=== PATIENT | female | born 1990 | race Caucasian/White ===

== ENCOUNTER 2017-12-02 13:06 | Emergency (ER) | payer OTHER, MEDICAID, SELFPAY ==
[2017-12-02 13:11] VITALS: BP 106/74; PULSE 111; RESP 18; TEMP 36.1; O2SAT 99
[2017-12-02 14:30] VITALS: BP 110/67; PULSE 73; RESP 22; O2SAT 95
--- NOTE | 2017-12-02 14:31 | ED_ITS ---
HPI - Skin/Abscess/Foreign Bdy <KIP Su - Last Filed: 12/02/17 21:15> General Chief complaint: Skin/Abscess/Foreign Body Stated complaint: ABCESS RIGHT ARM Time Seen by Provider: 12/02/17 13:34 Source: patient Mode of arrival: ambulatory Limitations: no limitations History of Present Illness HPI narrative: 27-year-old female with history of polysubstance abuse and is an everyday smoker here for complaint of abscess to her right forearm over the past 3 days. She denies any recent IV drug use however there are multiple bruises and to her arms that appear to be recent needlestick areas. She denies having any fever. She denies any drainage from the left forearm. Positive p.o. intake. She also states that she is having pain in secondary to her carpal tunnel syndrome bilaterally. She states she has not been using her wrist braces as directed and she states she does not have a left wrist brace at this time. She denies any trauma to the forearm area. No other concerns or complaints at this timeframe Related Data Home Medications Medication Instructions Recorded Confirmed alprazolam 0.5 mg PO TID PRN 12/02/17 12/02/17 dextroamphetamine-amphetamine 20 mg PO DAILY 12/02/17 12/02/17 Previous Rx's Medication Instructions Recorded clindamycin HCl 300 mg PO QID #28 cap 12/02/17 Allergies Allergy/AdvReac Type Severity Reaction Status Date / Time sulfamethoxazole Allergy Intermediate RASH Verified 12/02/17 13:13 [From BACTRIM] trimethoprim [From BACTRIM] Allergy Intermediate RASH Verified 12/02/17 13:13 hydrocodone [From VICODIN] Allergy Mild RASH Verified 12/02/17 13:13 morphine [MORPHINE] Allergy Mild ANXIETY, Verified 12/02/17 13:13 PRURITIS Review of Systems <KIP Su - Last Filed: 12/02/17 21:15> Constitutional Denies chills, Denies fever(s), Denies lethargy and Denies weakness Eyes Denies change in vision, Denies eye discharge, Denies irritation and Denies loss of vision ENT Ears, Nose, Mouth, and Throat: Denies change in voice, Denies neck pain and Denies sore throat Cardiovascular Denies chest pain, Denies irregular heart rhythm, Denies lightheadedness, Denies palpitations, Denies dyspnea, Denies dyspnea on exertion and Denies orthopnea Respiratory Denies cough, Denies dyspnea, Denies dyspnea on exertion and Denies wheezing Gastrointestinal Gastrointestinal: Denies abdominal pain, Denies change in bowel habits, Denies diarrhea, Denies nausea and Denies vomiting Genitourinary Denies hematuria, Denies flank pain, Denies urinary incontinence and Denies urinary urgency Musculoskeletal Denies neck pain Comments: bilateral wrist and hand pain secondary to carpal tunnel syndrome abscess to right proximal forearm Integumentary/Breasts Denies pruritus, Denies erythema, Denies rash and Denies wounds Neurologic Denies confusion, Denies loss of vision and Denies weakness Psychiatric Denies anxiety, Denies confusion, Denies depression, Denies homicidal ideation and Denies suicidal ideation Endocrine Denies palpitations Hematologic/Lymphatic Denies easy bruising Allergic/Immunologic Denies wheezing Exam <KIP Su - Last Filed: 12/02/17 21:15> Initial Vital Signs Initial Vital Signs: Vital Signs Temperature 97.0 F L 12/02/17 13:11 Pulse Rate 111 H 12/02/17 13:11 Respiratory Rate 18 12/02/17 13:11 Blood Pressure 106/74 12/02/17 13:11 Pulse Oximetry 99 12/02/17 13:11 Const General: cooperative and well developed Nutritional Appearance: well nourished Orientation: alert, awake, oriented x3 and not confused [facility] Mouth: oral mucosae normal and moist mucous membranes Eyes Conjunctivae: conjunctivae normal Sclera: sclerae normal Pupils: PERRL EOM: EOM intact bilaterally Resp Effort & Inspection: normal respiratory effort, able to speak in complete sentences, no respiratory distress and no use of accessory muscles Auscultation: clear to auscultation bilaterally, no rales, no rhonchi and no wheezes Cardio Rate: regular rate Rhythm: regular rhythm Heart Sounds: no click, no gallops, no murmurs and no rubs Skin General: No jaundice and No petechiae Neuro General: alert, oriented x3, gait normal and no focal motor deficits Speech: speech normal Extrem Other: upper extremities with bilateral distal sensation intact. Bilateral Upper extremities with full range of motion. Bilateral upper extremities with distal pulses intact. Positive Tinel sign to bilateral wrist <Yamileth Lozano DO - Last Filed: 12/03/17 08:17> Initial Vital Signs Initial Vital Signs: Vital Signs Temperature 97.0 F L 12/02/17 13:11 Pulse Rate 111 H 12/02/17 13:11 Respiratory Rate 18 12/02/17 13:11 Blood Pressure 106/74 12/02/17 13:11 Pulse Oximetry 99 12/02/17 13:11 Procedures <KIP Su - Last Filed: 12/02/17 21:15> Abscess I/D Site: upper extremity Side (if applicable): right Local Anesthetic: lidocaine 1% Amount of anesthesia used (mL): 2 Technique: incised with #11 blade Amount of fluid expressed (mL): 20 Irrigation: Yes Packing used?: none Course <KIP Su - Last Filed: 12/02/17 21:15> Orders Ordered: Discontinued Medications Hydromorphone HCl (Dilaudid) 0.5 mg IV NOW ONE Stop: 12/02/17 15:40 Last Admin: 12/02/17 16:02 Dose: Ibuprofen (Advil) 800 mg PO NOW ONE Stop: 12/02/17 13:53 Last Admin: 12/02/17 14:49 Dose: 800 mg Vital Signs - 8 hr 12/02/17 14:30 12/02/17 15:30 12/02/17 16:44 Pulse Rate 73 78 Respiratory Rate 22 16 16 Blood Pressure [Left Arm] 110/67 101/62 99/59 L Pulse Oximetry 95 99 99 <Yamileth Lozano DO - Last Filed: 12/03/17 08:17> Orders Ordered: Discontinued Medications Hydromorphone HCl (Dilaudid) 0.5 mg IV NOW ONE Stop: 12/02/17 15:40 Last Admin: 12/02/17 16:02 Dose: Ibuprofen (Advil) 800 mg PO NOW ONE Stop: 12/02/17 13:53 Last Admin: 12/02/17 14:49 Dose: 800 mg Vital Signs - 8 hr 12/02/17 14:30 12/02/17 15:30 12/02/17 16:44 Pulse Rate 73 78 Respiratory Rate 22 16 16 Blood Pressure [Left Arm] 110/67 101/62 99/59 L Pulse Oximetry 95 99 99 MDM - Skin/Abscess/Foreign Bdy <AGUSTIN SuP - Last Filed: 12/02/17 21:15> Lab Data Result diagrams: 12/02/17 15:30 12/02/17 15:30 Lab Results 12/02/17 12/02/17 Range/Units 15:30 15:30 WBC 13.2 H (4.5-11.0) X10^3/uL RBC 4.37 (4.0-5.2) X10^6/uL Hgb 12.3 (12.0-16.0) g/dL Hct 36.4 (36-46) % MCV 83.3 (80-100) fL MCH 28.1 (26-34) PG MCHC 33.8 (30-36) % RDW 13.1 (11.6-14.8) % Plt Count 281 (150-400) X10^3/uL Neut % (Auto) 73.1 (50-75) % Lymph % (Auto) 19.5 L (25-40) % [place] % (Auto) 6.5 (3-14) % Eos % (Auto) 0.3 L (2-4) % Baso % (Auto) 0.6 (0-2) % Neut # (Auto) 9600 H (8512-2601) /uL Sodium 144 (137-145) mmol/L Potassium 3.7 (3.4-5.1) mmol/L Chloride 107 (98-107) mmol/L Carbon Dioxide 22 (22-32) mmol/L BUN 9 (7-17) mg/dL Creatinine 0.60 (0.52-1.04) mg/dL Estimated GFR > 60.0 (>60) mL/min BUN/Creatinine Ratio 15.0 (6-22) Glucose 100 (70-100) mg/dL Calcium 9.8 (8.4-10.2) mg/dL MDM Narrative Medical decision making narrative: abscess to right forearm was incised and drained with good amount of purulent drainage removed. Patient tolerated well no complications. Wound culture was obtained and is pending. She is placed on clindamycin. she is given a left wrist splint and instructed to wear her right wrist splint along with this to help with her carpal tunnel syndrome. [id number] ibuprofen as needed for a ny discomfort. Suspect continued polysubstance abuse with suspect multiple injection sites to her forearms. Patient denies any substance abuse follow up with primary care provider next week for re-evaluation. CBC Shows mildly elevated white count otherwise is unremarkable and Chem panel was unremarkable. <Yamileth Lozano, - Last Filed: 12/03/17 08:17> Lab Data Lab Results 12/02/17 12/02/17 Range/Units 15:30 15:30 WBC 13.2 H (4.5-11.0) X10^3/uL RBC 4.37 (4.0-5.2) X10^6/uL Hgb 12.3 (12.0-16.0) g/dL Hct 36.4 (36-46) % MCV 83.3 (80-100) fL MCH 28.1 (26-34) PG MCHC 33.8 (30-36) % RDW 13.1 (11.6-14.8) % Plt Count 281 (150-400) X10^3/uL Neut % (Auto) 73.1 (50-75) % Lymph % (Auto) 19.5 L (25-40) % [place] % (Auto) 6.5 (3-14) % Eos % (Auto) 0.3 L (2-4) % Baso % (Auto) 0.6 (0-2) % Neut # (Auto) 9600 H (5851-0690) /uL Sodium 144 (137-145) mmol/L Potassium 3.7 (3.4-5.1) mmol/L Chloride 107 (98-107) mmol/L Carbon Dioxide 22 (22-32) mmol/L BUN 9 (7-17) mg/dL Creatinine 0.60 (0.52-1.04) mg/dL Estimated GFR > 60.0 (>60) mL/min BUN/Creatinine Ratio 15.0 (6-22) Glucose 100 (70-100) mg/dL Calcium 9.8 (8.4-10.2) mg/dL Discharge Plan Departure Patient Disposition: Home Clinical Impression: Abscess of forearm, right Discharge Date/Time: 12/02/17 16:58 Interventions: ED Discharge Assessment Last Done: 12/02/17 16:58 Instructions: DI for Incision and Drainage of a Skin Abscess Activity Restrictions/Additional Instructions: abscess to right forearm was incised and drained today. Your placed on an antibiotic clindamycin use as directed. Use [id number] ibuprofen as needed for any discomfort. Follow up with her primary care provider in the next few days for re-evaluation. For any worsening symptoms return to the emergency room. Use wrist splints as directed to help with carpal tunnel syndrome. For any worsening symptoms return to the emergency room. Prescriptions: New clindamycin HCl 300 mg capsule 300 mg PO QID Qty: 28 RF: 0 No Action alprazolam 0.5 mg tablet 0.5 mg PO TID PRN (Reason: Anxiety) RF: 0 dextroamphetamine-amphetamine 20 mg tablet 20 mg PO DAILY RF: 0 Referrals: [facility] [Provider Group] <Yamileth Lozano, - Last Filed: 12/03/17 08:17> Cosign ED Attending Luke Attestation: I was immediately available in the department for consultation. Documentation has been reviewed. I agree with assessment and plan.
[2017-12-02] MEDS: IBUPROFEN 400 MG TABLET 800 MG PO (14:49)
[2017-12-02 15:30] VITALS: BP 101/62; PULSE 78; RESP 16; O2SAT 99
[2017-12-02 15:58] LABS: Blood Urea Nitrogen 9 mg/dL (7-17); Calcium 9.8 mg/dL (8.4-10.2); Carbon Dioxide 22 mmol/L (22-32); Chloride 107 mmol/L (98-107); Estimated Glomerular Filt Rate > 60.0 mL/min (>60); Glucose 100 mg/dL (70-100); HEMOLYSIS 27 (0-50); Potassium 3.7 mmol/L (3.4-5.1); Sodium 144 mmol/L (137-145)
[2017-12-02 16:05] LABS: Add Manual Diff / Slide Review NO; Basophils Percent Auto 0.6 % (0-2); Eosinophils Percent Auto 0.3 % (2-4); Hematocrit 36.4 % (36-46); Hemoglobin 12.3 g/dL (12.0-16.0); Lymphocytes Percent Auto 19.5 % (25-40); Mean Corpuscular HGB Conc 33.8 % (30-36); Mean Corpuscular Hemoglobin 28.1 PG (26-34); Mean Corpuscular Volume 83.3 fL (80-100); Monocytes Percent Auto 6.5 % (3-14); Neutrophils Absolute Auto 9600 /uL (3000-5900); Neutrophils Percent Auto 73.1 % (50-75); Platelet Count 281 X10^3/uL (150-400); Red Blood Cell Count 4.37 X10^6/uL (4.0-5.2); Red Cell Distribution Width 13.1 % (11.6-14.8); White Blood Cell Count 13.2 X10^3/uL (4.5-11.0)
[2017-12-02 16:44] VITALS: BP 99/59; RESP 16; O2SAT 99
== END 2017-12-02 16:58 | disposition home or self-care (01) ==
PROVIDERS: Emergency Provider Nurse Practitioner Family
DX: L02.413 Cutaneous abscess of right upper limb (principal)
CPT/HCPCS: 10060; 29125; 29280; 80048; 85025; 87070; 87075; 87077; 87147; 87186; 87205; 99283

== ENCOUNTER 2020-01-06 10:00 | Emergency (ER) | payer OTHER, MEDICAID, SELFPAY ==
[2020-01-06 10:06] VITALS: BP 149/89; PULSE 98; RESP 20; TEMP 36.8; O2SAT 100
[2020-01-06] MEDS: OXYCODONE IR 5 MG TABLET PO (10:22)
[2020-01-06] MEDS: IBUPROFEN 400 MG TABLET 800 MG PO (10:22)
--- NOTE | 2020-01-06 10:51 | DI.US.S_ITS ---
PROCEDURE: US EXTREMITY NONVASC UPPER LT INDICATIONS: BILATERAL ABSCESS UPPER EXTREMITIES TECHNIQUE: Real-time scanning was performed of the left upper extremity in the wrist area, with image documentation. COMPARISON: None. FINDINGS: Ultrasound was performed in the area of interest. There is a complex mass with heterogeneous echotexture in the left upper extremity measuring 4.4 x 2.0 x 3.2 cm. There is mild peripherally increased vascularity. IMPRESSION: A 4.4 x 2.0 x 3.2 cm complex mass in the palpable area of concern. Differential diagnosis includes a hematoma or an abscess. Dictated by: Carlin Gould M.D. on 01/06/2020 at 11:39 Approved by: Carlin Gould M.D. on 01/06/2020 at 11:42
--- NOTE | 2020-01-06 10:51 | DI.US.S_ITS ---
PROCEDURE: US EXTREMELY NONVASC UPPER RT INDICATIONS: BILATERAL ABSCESS UPPER EXTREMITIES TECHNIQUE: Real-time scanning was performed of the right upper extremity involving the distal medial right arm, with image documentation. COMPARISON: None. FINDINGS: There is a complex mass with heterogeneous, hypoechoic echotexture measuring 5.1 x 1.5 x 3.6 cm, corresponding to the palpable abnormality. On Doppler ultrasound, there is peripherally increased vascular flow. IMPRESSION: A 5.1 x 1.5 x 3.6 cm complex mass in the distal right arm, correlating with the palpable abnormality. It is most likely an abscess or hematoma. Recommend clinical correlation and follow-up Dictated by: Carlin Gould M.D. on 01/06/2020 at 11:43 Approved by: Carlin Gould M.D. on 01/06/2020 at 11:46
[2020-01-06] MEDS: LIDO 1%/SOD BICARB 8.4% (10ML) 10 ML SYRINGE INJ (12:59)
[2020-01-06] MEDS: HYDROMORPHONE 1 MG INJ IM (13:05)
--- NOTE | 2020-01-06 13:38 | ED_ITS ---
HPI - Skin/Abscess/Foreign Bdy <KIP Garibay - Last Filed: 01/06/20 22:41> General Chief complaint: Skin/Abscess/Foreign Body Stated complaint: abscess each arm Time Seen by Provider: 01/06/20 12:09 Source: patient Mode of arrival: Ambulatory Limitations: no limitations History of Present Illness HPI narrative: This is a 29 year female, smoker, who has medical history significant for polysubstance abuse, abscess in arm, hypothyroidism, bipolar, depression presents to ED with chief complain of bilateral arm pain, swelling like abscess. Patient reports left ulnar aspect of wrist pain and swelling and right volar aspect of upper forearm pain and swelling started 3 days ago. Patient reports she has been having small lesions with pustules in buttock and elbow 2 weeks ago which have resolved. Patient denies using IV drug. She is taking methadone daily seek care at [facility] for addiction problem. Patient denies fever, chills, nausea or vomiting. Patient reports pain radiating to lower and upper arm near these new lesions. Patient reports pain as 8/10 and constant stabbing and burning sensation. Related Data Home Medications Medication Instructions Recorded Confirmed citalopram 10 mg PO QAM 01/06/20 01/06/20 levothyroxine 100 mcg PO QAM 01/06/20 01/06/20 methadone [Methadone Intensol] 148 mg PO DAILY 01/06/20 01/06/20 olanzapine 5 mg PO BEDTIME 01/06/20 01/06/20 Previous Rx's Medication Instructions Recorded clindamycin HCl 150 mg PO TID 7 Days #21 cap 01/06/20 clindamycin HCl 300 mg PO Q8H 7 Days #21 cap 01/06/20 doxycycline hyclate 100 mg PO BID 7 Days #14 cap 01/09/20 Allergies Allergy/AdvReac Type Severity Reaction Status Date / Time sulfamethoxazole Allergy Intermediate RASH Verified 01/08/20 19:01 [From BACTRIM] trimethoprim [From BACTRIM] Allergy Intermediate RASH Verified 01/08/20 19:01 hydrocodone [From VICODIN] Allergy Mild RASH Verified 01/08/20 19:01 morphine [MORPHINE] Allergy Mild ANXIETY, Verified 01/08/20 19:01 PRURITIS Review of Systems <KIP Garibay - Last Filed: 01/06/20 22:41> Review of Systems Narrative: General: Denies fever, chills, fatigue, malaise, sweats. HEENT: Denies sinus pain, ear pain, sore throat, difficulty swallowing, dizziness. Respiratory: Denies dyspnea, cough, wheezing, hemoptysis, sputum. Cardiovascular: Denies chest pain, palpitations, orthopnea, edema. Gastrointestinal: Denies nausea, vomiting, abdominal pain, diarrhea, constipation, melena. : Denies dysuria, frequency, incontinence, hematuria, urinary retention. Musculoskeletal: Denies weakness, joint pain or bony pain. Skin: See HPI Neurologic: Denies weakness, headache, numbness, change in speech, confusion, seizures, incoordination. Psychiatric: See HPI 12-point review of systems is negative except for those stated above. Patient History <Darien BermudezKIP Peacock - Last Filed: 01/06/20 22:41> Medical History (Updated 01/09/20 @ 01:34 by Smooth Davis MD) Polysubstance abuse (05/20/15) Social History Smoking Status: Current every day smoker Smoking Status: Current every day smoker alcohol intake frequency: 0-2 drinks per day Substance Use Type: former substance user Exam <Darien BermudezKIP Peacock - Last Filed: 01/06/20 22:41> Narrative Exam Narrative: GEN: Alert, oriented x 3, thin appearing, and in no acute distress. Head: Normal cephalic, atraumatic. No scalp or temporal tenderness, palpable mass or rash. EYES: Pupils are equal, round, and reactive to light and accommodation. E xtraocular muscles are intact bilaterally. There is no subconjunctival hemorrhage, exudate and sclera non-icteric. ENT: Hearing grossly intact. Nose without bleeding, purulent discharge or deviation. Mucous membrane moist, no mucosal lesion. Throat without erythema, tonsillar hypertrophy or exudate. Uvula in midline, airway patent. Neck: Trachea in midline. No JVD, non-tender without lymphadenopathy. No masses or thyroid megaly. Supple, non-tender and no meningeal signs. CARDIAC: Normal regular rate and rhythm without murmurs, gallops, or rubs. No chest wall tenderness. No peripheral edema, cyanosis or pallor. Capillary refill is less than 2 seconds. RESPIRATORY: Lungs are clear to auscultate bilaterally. No cough, wheezes, rales, or rhonchi. No stridor, respiratory distress, increase work of breathing, or accessary muscle used. ABD: Abdomen soft, nontender and non-distended. No guarding or rebound tenderness to palpate. Bowel sounds are normal in all 4 quadrants. There is no palpable masses or organomegaly. EXT: Intact radial pulses, sensation and range of motion distally to bilateral fingers. Around the nodules very tender to palpate. SKIN: Warm, dry, normal color for patient. About 5x5 cm abscess like nodule in for aspect of right forearm, 4.5 x 4 cm of abscess likely nodule on left volar aspect of wrist which with fluctuance. Srounding skin mildly erythematous and warmth without drainage. BACK: Nontender without deformity or crepitance. No flank tenderness. NEUROLOGICAL: Alert and oriented to place, time and person. Sensation and motor function intact bilaterally. No facial droops, dysphasia. PSYCHIATRIC: Good judgement and reason, without hallucinations, abnormal affect or abnormal behaviors during the examination. Patient is not suicidal. Initial Vital Signs Initial Vital Signs: Vital Signs Temperature 98.2 F 01/06/20 10:06 Pulse Rate 98 H 01/06/20 10:06 Respiratory Rate 20 01/06/20 10:06 Blood Pressure 149/89 H 01/06/20 10:06 Pulse Oximetry 100 01/06/20 10:06 <Anastasia Vieyra DO - Last Filed: 01/10/20 08:14> Initial Vital Signs Initial Vital Signs: Vital Signs Temperature 98.2 F 01/06/20 10:06 Pulse Rate 98 H 01/06/20 10:06 Respiratory Rate 20 01/06/20 10:06 Blood Pressure 149/89 H 01/06/20 10:06 Pulse Oximetry 100 01/06/20 10:06 Procedures <KIP Garibay - Last Filed: 01/06/20 22:41> Abscess I/D I&D #1: Site: other (Left Wrist-ulna aspect) Side (if applicable): left Local Anesthetic: lidocaine 1% and with epi Amount of anesthesia used (mL): 3 Technique: needle aspiration and incised with #11 blade Amount of fluid expressed (mL): 8 Irrigation: Yes Packing used?: none I&D #2: Site: upper extremity Side (if applicable): right Local Anesthetic: lidocaine 1% and with bicarb Amount of anesthesia used (mL): 3 Technique: needle aspiration and incised with #11 blade Amount of fluid expressed (mL): 10 Irrigation: Yes Packing used?: none Scores <[facility]pperson[facility] - Last Filed: 01/06/20 22:41> GCS Vane coma scale eye opening: Spontaneous [place] coma scale verbal response: Orientated [place] coma scale motor response: Obey commands Vane coma scale total score: 15 qSOFA Altered Mental Status (GCS <15): No Respiratory rate greater than/equal to 22: No Systolic blood pressure less than or equal to 100: No qSOFA Total: 0 0-1 Not High Risk 1-3 High risk Course <[facility] - Last Filed: 01/06/20 22:41> Orders Ordered: Discontinued Medications Clindamycin HCl (Cleocin) 450 mg PO NOW ONE Stop: 01/06/20 13:41 Last Admin: 01/06/20 13:56 Dose: 450 mg Documented by: MAYKEL Hydromorphone HCl (Dilaudid) 1 mg IM NOW ONE Stop: 01/06/20 13:01 Last Admin: 01/06/20 13:05 Dose: 1 mg Documented by: CURRY Ibuprofen (Advil) 800 mg PO NOW ONE Stop: 01/06/20 10:18 Last Admin: 01/06/20 10:22 Dose: 800 mg Documented by: DIPESH Lidocaine/Sodium Bicarbonate (Buffered Lidocaine 10 Ml Syr) 10 ml INJ NOW ONE Stop: 01/06/20 12:40 Last Admin: 01/06/20 12:59 Dose: 10 ml Documented by: CURRY Oxycodone HCl (Percolone) 5 mg PO NOW ONE Stop: 01/06/20 10:18 Last Admin: 01/06/20 10:22 Dose: 5 mg Documented by: DIPESH Vital Signs Vital signs: Vital Signs - 8 hr 01/06/20 14:02 Pulse Rate 71 Respiratory Rate 16 Blood Pressure 100/65 Pulse Oximetry 100 <Anastasia Vieyra DO - Last Filed: 01/10/20 08:14> Orders Ordered: Discontinued Medications Clindamycin HCl (Cleocin) 450 mg PO NOW ONE Stop: 01/06/20 13:41 Last Admin: 01/06/20 13:56 Dose: 450 mg Documented by: MAYKEL Hydromorphone HCl (Dilaudid) 1 mg IM NOW ONE Stop: 01/06/20 13:01 Last Admin: 01/06/20 13:05 Dose: 1 mg Documented by: CURRY Ibuprofen (Advil) 800 mg PO NOW ONE Stop: 01/06/20 10:18 Last Admin: 01/06/20 10:22 Dose: 800 mg Documented by: DIPESH Lidocaine/Sodium Bicarbonate (Buffered Lidocaine 10 Ml Syr) 10 ml INJ NOW ONE Stop: 01/06/20 12:40 Last Admin: 01/06/20 12:59 Dose: 10 ml Documented by: CURRY Oxycodone HCl (Percolone) 5 mg PO NOW ONE Stop: 01/06/20 10:18 Last Admin: 01/06/20 10:22 Dose: 5 mg Documented by: DIPESH Vital Signs Vital signs: Vital Signs - 8 hr 01/06/20 14:02 Pulse Rate 71 Respiratory Rate 16 Blood Pressure 100/65 Pulse Oximetry 100 MDM - Skin/Abscess/Foreign Bdy <Darien AidanKIP Epperson - Last Filed: 01/06/20 22:41> Differential Diagnosis Differential diagnosis: Likely abscess of skin or subcutaneous tissue and cellulitis Medical Records Attestation: I reviewed the patient's medical records. Imaging Data US-EXT RT: Radiologist's Impression: [place] [address] Ultrasound Report Signed Patient: Heidi Anne [facility]#: [id number] : 1990Acct:[id number] Age/Sex: FDate of Service: 01/06/20 Loc: ED Accession Number: [id number] Procedure: US extremity nonvasc upper rt Ordering Provider: Anastasia Vieyra D.O. PROCEDURE: US EXTREMELY NONVASC UPPER RT INDICATIONS: BILATERAL ABSCESS UPPER EXTREMITIES TECHNIQUE: Real-time scanning was performed of the right upper extremity involving the distal medial right arm, with image documentation. COMPARISON: None. FINDINGS: There is a complex mass with heterogeneous, hypoechoic echotexture measuring 5.1 x 1.5 x 3.6 cm, corresponding to the palpable abnormality. On Doppler ultrasound, there is peripherally increased vascular flow. IMPRESSION: A 5.1 x 1.5 x 3.6 cm complex mass in the distal right arm, correlating with the palpable abnormality. It is most likely an abscess or hematoma. Recommend clinical correlation and follow-up Dictated by: Carlin Gould M.D. on 01/06/2020 at 11:43 Approved by: Carlin Gould M.D. on 01/06/2020 at 11:46 US-EXT LT: Radiologist's Impression: [place] [address] Ultrasound Report Signed Patient: Heidi Anne MMR#: [id number] : 1990Acct:[id number] Age/Sex: te of Service: 01/06/20 Loc: ED Accession Number: [id number] Procedure: US extremity nonvasc upper lt Ordering Provider: Anastasia Vieyra D.O. PROCEDURE: US EXTREMITY NONVASC UPPER LT INDICATIONS: BILATERAL ABSCESS UPPER EXTREMITIES TECHNIQUE: Real-time scanning was performed of the left upper extremity in the wrist area, with image documentation. COMPARISON: None. FINDINGS: Ultrasound was performed in the area of interest. There is a complex mass with heterogeneous echotexture in the left upper extremity measuring 4.4 x 2.0 x 3.2 cm. There is mild peripherally increased vascularity. IMPRESSION: A 4.4 x 2.0 x 3.2 cm complex mass in the palpable area of concern. Differential diagnosis includes a hematoma or an abscess. Dictated by: Carlin Gould M.D. on 01/06/2020 at 11:39 Approved by: Carlin Gould M.D. on 01/06/2020 at 11:42 [facility] Narrative Medical decision making narrative: This is a 29-year-old female who presents to ED with chief complain of abscess on left wrist abscess measuring 4.4 x 2.0 x 3 .2 cm with heterogeneous echotexture in left upper extremity with increased vascularity and right volar aspect of forearm measuring 5.1 x 1.5x 3.6 cm with heterogeneous, hyper chronic echotexture abscess. These abscesses were incised and drained with significant amount of purulent drainage. See procedure note. Patient was medicated with 1 mg of Dilaudid and 1 oxycodone prior the procedure. Wound cultures were obtained. Patient denies using IV drugs and states currently taking methadone for polysubstance abuse which is managed by [facility]. Patient was placed on clindamycin 450 mg 3 times a day and advised to use warm pack on affected site. Patient denies fever, chills, nausea or vomiting. Patient is afebrile in ED with normal limits of vital signs. Labs were deferred at this time. Patient advised to return to ED tomorrow for wound recheck and advised to follow up with primary care physician. Discharge Plan Departure Patient Disposition: Home Clinical Impression: Abscess, Encounter for incision and drainage procedure Discharge Date/Time: 01/06/20 14:02 Instructions: Incision and Drainage of a Skin Abscess Activity Restrictions/Additional Instructions: You have been diagnosed with [abscess in bilateral arm and I and D procedure done to drain the abscess.]. What to do: *Take your medications as directed. Please take clindamycin 450 mg 3 times a day for 7 days. First dose was given in ED. you can take [id number] Tylenol and or Motrin as needed for discomfort. Clindamycin has been transmitted to [facility] in [place]. * please return to ED for wound recheck tomorrow after 12:00 p.m.. Let them know you were seen in the ED and that we asked you to be seen in follow up. Otherwise, please follow-up with your primary care physician in 2-3 days for follow-up. *Return to ED if you have any new, worsening, or concerning symptoms, such as [fever, chills, nausea, vomiting, chest pain, unable to tolerate fluids, breathing difficulty, worsening pain or any acute concerns]. Prescriptions: New clindamycin HCl 300 mg capsule 300 mg PO Q8H 7 Days Qty: 21 RF: 0 clindamycin HCl 150 mg capsule 150 mg PO TID 7 Days Qty: 21 RF: 0 No Action citalopram 10 mg Tablet 10 mg PO QAM RF: 0 olanzapine 5 mg Tablet 5 mg PO BEDTIME RF: 0 levothyroxine 100 mcg Tablet 100 mcg PO QAM RF: 0 methadone [Methadone Intensol] 10 mg/mL Concentrate 148 mg PO DAILY RF: 0 doxycycline hyclate 100 mg capsule 100 mg PO BID 7 Days Qty: 14 RF: 0 <Anastasia Vieyra DO - Last Filed: 01/10/20 08:14> Cosign ED Attending Cosignature Attestation: I was immediately available in the department for consultation. This documentation has been reviewed and I agree with assessment and plan, US was obtained on abscess second to concern of being over arterial site. Also noted that patient was changed to doxycycline as per culture on repeat visit. Supervised by Anastasia Vieyra DO
[2020-01-06] MEDS: CLINDAMYCIN 150 MG CAPSULE 450 MG PO (13:56)
[2020-01-06 14:02] VITALS: BP 100/65; PULSE 71; RESP 16; O2SAT 100
== END 2020-01-06 14:02 | disposition home or self-care (01) ==
PROVIDERS: Emergency Provider Nurse Practitioner Family
DX: L02.414 Cutaneous abscess of left upper limb (principal); L02.413 Cutaneous abscess of right upper limb
CPT/HCPCS: 10061; 76882; 87070; 87077; 87147; 87186; 87205; 96372; 99283; 99284; J1170

== ENCOUNTER 2020-01-08 13:06 | Emergency (ER) | payer OTHER, MEDICAID, SELFPAY ==
[2020-01-08 13:14] VITALS: BP 133/84; PULSE 76; RESP 15; TEMP 36.9; O2SAT 96; BMI 23.5
--- NOTE | 2020-01-08 17:25 | PC.NURSE ---
unable to locate pt in lobby
== END 2020-01-08 18:05 | disposition left against medical advice (07) ==
PROVIDERS: Emergency Provider Emergency Medicine
CPT/HCPCS: 99281

== ENCOUNTER 2020-01-08 18:29 | Emergency (ER) | payer OTHER, MEDICAID, SELFPAY ==
[2020-01-08 18:57] VITALS: BP 129/75; PULSE 121; RESP 18; TEMP 37; O2SAT 99; BMI 23.1
[2020-01-09 00:23] VITALS: BP 99/63; PULSE 64; RESP 16; TEMP 36.7; O2SAT 96
--- NOTE | 2020-01-09 01:13 | ED.SKABFB ---
HPI - Skin/Abscess/Foreign Bdy General Chief complaint: Skin/Abscess/Foreign Body Stated complaint: abcesses on arms Time Seen by Provider: 01/09/20 01:09 Source: patient Mode of arrival: Ambulatory Limitations: no limitations History of Present Illness HPI narrative: The patient was seen here 3 days ago, bilateral forearm abscesses were I indeed. She was discharged on clindamycin. Wound culture grew MRSA, resistant to clindamycin. She has ongoing drainage from the sites. She denies fever or chills. The amount of erythema around the sites has decreased. She has a history of hypothyroidism, bipolar, and polysubstance abuse. She denies other skin lesions. With me, she declined injecting the sites were abscesses warm. Related Data Home Medications Medication Instructions Recorded Confirmed citalopram 10 mg PO QAM 01/06/20 01/06/20 levothyroxine 100 mcg PO QAM 01/06/20 01/06/20 methadone [Methadone Intensol] 148 mg PO DAILY 01/06/20 01/06/20 olanzapine 5 mg PO BEDTIME 01/06/20 01/06/20 Previous Rx's Medication Instructions Recorded clindamycin HCl 150 mg PO TID 7 Days #21 cap 01/06/20 clindamycin HCl 300 mg PO Q8H 7 Days #21 cap 01/06/20 doxycycline hyclate 100 mg PO BID 7 Days #14 cap 01/09/20 Allergies Allergy/AdvReac Type Severity Reaction Status Date / Time sulfamethoxazole Allergy Intermediate RASH Verified 01/08/20 19:01 [From BACTRIM] trimethoprim [From BACTRIM] Allergy Intermediate RASH Verified 01/08/20 19:01 hydrocodone [From VICODIN] Allergy Mild RASH Verified 01/08/20 19:01 morphine [MORPHINE] Allergy Mild ANXIETY, Verified 01/08/20 19:01 PRURITIS Review of Systems Constitutional Constitutional: Denies chills, Denies fever(s) and Denies weakness Musculoskeletal Musculoskeletal: Reports as per HPI Integumentary/Breasts Skin/Breast: Reports as per HPI Neurologic Neurologic: Denies weakness Patient History Medical History (Updated 01/09/20 @ 01:34 by Smooth Davis MD) Polysubstance abuse (05/20/15) Social History Smoking Status: Current every day smoker Smoking Status: Current every day smoker alcohol intake frequency: holidays/special occasions only Substance Use Type: marijuana and methamphetamine Exam Initial Vital Signs Initial Vital Signs: Vital Signs Temperature 98.6 F 01/08/20 18:57 Pulse Rate 121 H 01/08/20 18:57 Respiratory Rate 18 01/08/20 18:57 Blood Pressure 129/75 01/08/20 18:57 Pulse Oximetry 99 01/08/20 18:57 Const General: cooperative and well developed Nutritional Appearance: well nourished Skin Other: Healing abscess sites on both forearms, purulent discharge from the left forearm. Erythema at the site, not extending significantly from the site. Neuro Other: Motor and sensory exam is intact to both arms. Extrem Other: Full range of motion both arms, abscess sites that been draining both arms. Period discharge from the left forearm. Course Course Course Narrative: The wounds were clean. The wound culture from 3 days ago was examined. Medications are changed to doxycycline. A 2nd wound culture was taken. Vital Signs Vital signs: Vital Signs - 8 hr 01/08/20 18:57 01/09/20 00:23 Temperature 98.6 F 98.1 F Pulse Rate 121 H 64 Respiratory Rate 18 16 Blood Pressure 129/75 99/63 Pulse Oximetry 99 96 Discharge Plan Departure Patient Disposition: Home Clinical Impression: Abscess Instructions: DI for Skin Abscess Activity Restrictions/Additional Instructions: Cleaned the wounds on both arms daily with soap and hot water. Doxycycline 1 tablet 2 times daily for 7 days. Return here if he develops redness around the wound sites or fever. Prescriptions: New doxycycline hyclate 100 mg capsule 100 mg PO BID 7 Days Qty: 14 RF: 0 No Action citalopram 10 mg Tablet 10 mg PO QAM RF: 0 olanzapine 5 mg Tablet 5 mg PO BEDTIME RF: 0 levothyroxine 100 mcg Tablet 100 mcg PO QAM RF: 0 methadone [Methadone Intensol] 10 mg/mL Concentrate 148 mg PO DAILY RF: 0 clindamycin HCl 300 mg capsule 300 mg PO Q8H 7 Days Qty: 21 RF: 0 clindamycin HCl 150 mg capsule 150 mg PO TID 7 Days Qty: 21 RF: 0
[2020-01-09] MEDS: TRIMETH/SULFA 160/800 (DS) TABLET 1 TAB PO (01:26)
[2020-01-09] MEDS: DOXYCYCLINE HYCLATE 100 MG TABLET PO (01:30)
== END 2020-01-09 01:41 | disposition home or self-care (01) ==
PROVIDERS: Emergency Provider Emergency Medicine
DX: L02.414 Cutaneous abscess of left upper limb (principal); L02.413 Cutaneous abscess of right upper limb
CPT/HCPCS: 87070; 87077; 87147; 87186; 87205; 99283

== ENCOUNTER 2020-03-03 11:36 | Emergency (ER) | payer OTHER, MEDICAID, SELFPAY ==
[2020-03-03] VITALS (13 sets, daily range): BP systolic 107–134; BP diastolic 71–86; PULSE 55–114; RESP 15; TEMP 36.7; O2SAT 97–100; BMI 21.1
--- NOTE | 2020-03-03 12:25 | ED_ITS ---
HPI - <KIP Garibay - Last Filed: 03/03/20 18:08> General Chief complaint: Vaginal Bleeding Stated complaint: abdominal bleeding 20x days bp fall/rise Time Seen by Provider: 03/03/20 12:06 Source: patient Mode of arrival: Ambulatory Limitations: no limitations History of Present Illness HPI Narrative: This is a 29-year-old female, smoker, who has past medical history substance and opioid dependence, abscess with I and D's, hyperthyroidisim, pyelonephritis presents to ED with chief complain of ongoing vaginal bleeding for 20 days. Patient reports had taken plan B medication due to unprotected sex and she is about to start hep C treatment with Mavyret. test was negative around 02/08/2020 when she started hep C treatment. Patient states she had not menstruation for 2 years. Since patient has started levothyroxine 2 months ago she had 1st menstruation on February 04, 2020 and had not stopped. She states chances changing from bright red blood to dark brown, and to clots. Then the menstruation stops for 1-2 days before recurring. Patient feels spacey and not herself. She changes tampons about 3 times in 24 hour and tends to soak through. Patient also has implanon which was placed about 2-3 years ago. Patient also reports right-sided upper chest pain. She denies dyspnea, vomiting. She reports low abdominal cramping radiates to left back with nausea. Date of Last Menstrual Period: 02/04/20 Related Data Home Medications Medication Instructions Recorded Confirmed citalopram 10 mg PO QAM 01/06/20 01/06/20 levothyroxine 100 mcg PO QAM 01/06/20 01/06/20 methadone [Methadone Intensol] 148 mg PO DAILY 01/06/20 01/06/20 olanzapine 5 mg PO BEDTIME 01/06/20 01/06/20 Allergies Allergy/AdvReac Type Severity Reaction Status Date / Time sulfamethoxazole Allergy Intermediate RASH Verified 03/03/20 11:43 [From BACTRIM] trimethoprim [From BACTRIM] Allergy Intermediate RASH Verified 03/03/20 11:43 hydrocodone [From VICODIN] Allergy Mild RASH Verified 03/03/20 11:43 morphine [MORPHINE] Allergy Mild ANXIETY, Verified 03/03/20 11:43 PRURITIS Review of Systems <AGUSTIN GaribayP - Last Filed: 03/03/20 18:08> Review of Systems Narrative: General: Denies fever, chills, fatigue, malaise, sweats. HEENT: Denies sinus pain, ear pain, sore throat, difficulty swallowing, (+) dizziness. Respiratory: Denies dyspnea, cough, wheezing, hemoptysis, sputum. Cardiovascular: See HPI Gastrointestinal: Denies nausea, vomiting, abdominal pain, diarrhea, constipation, melena. : See HPI Musculoskeletal: See HPI Skin: Denies rash, skin lesions, or other. Neurologic: Denies weakness, headache, numbness, change in speech, confusion, seizures, incoordination. Psychiatric: No concerning psychosocial issues. 12-point review of systems is negative except for those stated above. PMFSH - <AGUSTIN GaribayP - Last Filed: 03/03/20 18:08> Past Medical History Medical history: Reports thyroid disease (Hyper) Additional medical history: Substance addiction, opiate addiction, hepatitis-C Date of Last Menstrual Period: 02/04/20 Exam <AGUSTIN GaribayP - Last Filed: 03/03/20 18:08> Narrative Exam Narrative: GEN: Alert, oriented x 3, thin appearing, and in no acute distress. Head: Normal cephalic, atraumatic. No scalp or temporal tenderness, palpable mass or rash. EYES: Pupils are equal, round, and reactive to light and accommodation. Extrao cular muscles are intact bilaterally. There is no subconjunctival hemorrhage, exudate and sclera non-icteric. ENT: Hearing grossly intact. Nose without bleeding, purulent discharge or deviation. Facial sinuses nontender to palpate. Mucous membrane dry, no mucosal lesion. Throat without erythema, tonsillar hypertrophy or exudate. Uvula in midline, airway patent. Neck: Trachea in midline. No JVD, non-tender without lymphadenopathy. No masses or thyroid megaly. Supple, non-tender and no meningeal signs. CARDIAC: Normal regular rate and rhythm without murmurs, gallops, or rubs. No chest wall tenderness. No peripheral edema, cyanosis or pallor. Capillary refill is less than 2 seconds. RESPIRATORY: Lungs are clear to auscultate bilaterally. No cough, wheezes, rales, or rhonchi. No stridor, respiratory distress, increase work of breathing, or accessary muscle used. ABD: Abdomen soft, nontender and non-distended. No guarding or rebound tenderness to palpate. Bowel sounds are normal in all 4 quadrants. There is no palpable masses or organomegaly. EXT: Full painless ROM of all extremities with no loss of sensation, strength, effusion or edema. SKIN: Nodule in right lower extremity currently being treated for with clindamycin for abscess/infection. Multiple small bruises in bilateral upper extremities. Warm, dry, normal color for patient. BACK: Nontender without deformity or crepitance. No flank tenderness. NEUROLOGICAL: Alert and oriented to place, time and person. Sensation and motor function intact bilaterally. No facial droops, dysphasia. PSYCHIATRIC: Good judgement and reason, without hallucinations, abnormal affect or abnormal behaviors during the examination. Patient is not suicidal. Initial Vital Signs Initial Vital Signs: Vital Signs Temperature 98.1 F 03/03/20 11:43 Pulse Rate 109 H 03/03/20 11:43 Respiratory Rate 15 03/03/20 11:43 Blood Pressure 134/86 03/03/20 11:43 Pulse Oximetry 100 03/03/20 11:43 <Yamileth Lozano DO - Last Filed: 03/03/20 19:17> Initial Vital Signs Initial Vital Signs: Vital Signs Temperature 98.1 F 03/03/20 11:43 Pulse Rate 109 H 03/03/20 11:43 Respiratory Rate 15 03/03/20 11:43 Blood Pressure 134/86 03/03/20 11:43 Pulse Oximetry 100 03/03/20 11:43 Scores <[facility] - Last Filed: 03/03/20 18:08> GCS Vane coma scale eye opening: Spontaneous Vane coma scale verbal response: Orientated Vane coma scale motor response: Obey commands Vane coma scale total score: 15 HEART Score Heart Score history: Slightly Suspicious Heart Score EKG: Normal Heart Score Age: < 45 years old Heart Score risk factors: No known risk factors Heart Score troponin: < or = to normal limit Heart Score Total: 0 Course <[facility]acock[facility] - Last Filed: 03/03/20 18:08> Orders Ordered: ED Orders 03/03/20 11:47 Basic Metabolic Panel Stat Comprehensive Metabolic Panel Stat HCG Quantitative /Beta subunit Stat Magnesium Stat Thyroid Stimulating Hormone Stat Troponin & CK Cardiac Panel Stat Type and Screen Stat 03/03/20 12:26 XR chest 2V Stat 03/03/20 12:30 Complete Blood Count AUTO DIFF Stat 03/03/20 12:38 EKG-12 Lead Stat 03/03/20 13:03 Urine Culture Stat Urine Microscopic Stat 03/03/20 13:15 US pelvic complete Stat Discontinued Medications Sodium Chloride (Normal Saline 0.9%) 1,000 mls @ 1,000 mls/hr IV BOLUS ONE Stop: 03/03/20 13:26 Last Infusion: 03/03/20 15:15 Dose: 0 mls/hr Documented by: Admin: 03/03/20 13:30 Dose: 1,000 mls/hr Documented by: TERI Sodium Chloride (Normal Saline 0.9%) 500 mls @ 1,000 mls/hr IV BOLUS ONE Stop: 03/03/20 16:51 Last Admin: 03/03/20 16:39 Dose: Not Given Documented by: TERI Sodium Chloride (Normal Saline 0.9%) 1,000 mls @ 1,000 mls/hr IV BOLUS ONE Stop: 03/03/20 17:33 Last Infusion: 03/03/20 17:40 Dose: 0 mls/hr Documented by: Admin: 03/03/20 16:38 Dose: 1,000 mls/hr Documented by: TERI Ketorolac Tromethamine (Ketorolac 60 Mg/2 Ml Vial) 15 mg IV NOW ONE Stop: 03/03/20 16:23 Last Admin: 03/03/20 16:38 Dose: 15 mg Documented by: TERI Ondansetron HCl (Ondansetron 4 Mg Odt) 4 mg SL NOW ONE Stop: 03/03/20 13:11 Last Admin: 03/03/20 13:38 Dose: Not Given Documented by: TERI Reevaluation(s) Reevaluation #1: Difficulty lab draws by lab tach. Difficult IV start with the lab draws by RN with multiple attempts. Waiting for IV nurse from [facility] for IV/lab draw. Time: 13:02 Reevaluation #2: Orthostatic vs postive after 1 liter of NS infusion. We will repeat this and reassess patient. Otherwise labs are assuring with more cardiac enzymes. Time: 16:39 Vital Signs Vital signs: Vital Signs - 8 hr 03/03/20 11:43 03/03/20 12:54 03/03/20 13:00 Temperature 98.1 F Pulse Rate 109 H 71 66 Pulse Rate [Orthostatic Lying] Pulse Rate [Orthostatic Sitting] Pulse Rate [Orthostatic Standing] Respiratory Rate 15 Blood Pressure 134/86 118/83 109/76 Blood Pressure [Orthostatic Lying] Blood Pressure [Orthostatic Sitting] Blood Pressure [Orthostatic Standing] Pulse Oximetry 100 99 99 03/03/20 13:30 03/03/20 14:00 03/03/20 14:30 Temperature Pulse Rate 66 60 58 L Pulse Rate [Orthostatic Lying] Pulse Rate [Orthostatic Sitting] Pulse Rate [Orthostatic Standing] Respiratory Rate Blood Pressure 107/71 114/77 109/71 Blood Pressure [Orthostatic Lying] Blood Pressure [Orthostatic Sitting] Blood Pressure [Orthostatic Standing] Pulse Oximetry 99 99 98 03/03/20 15:00 03/03/20 15:30 03/03/20 16:18 Temperature Pulse Rate 55 L 83 Pulse Rate [Orthostatic Lying] Pulse Rate [Orthostatic Sitting] Pulse Rate [Orthostatic Standing] Respiratory Rate Blood Pressure 107/73 109/72 112/77 Blood Pressure [Orthostatic Lying] Blood Pressure [Orthostatic Sitting] Blood Pressure [Orthostatic Standing] Pulse Oximetry 97 97 100 03/03/20 16:20 03/03/20 16:21 03/03/20 16:27 Temperature Pulse Rate 112 H 103 H 114 H Pulse Rate [Orthostatic Lying] 83 Pulse Rate [Orthostatic Sitting] 94 H Pulse Rate [Orthostatic Standing] 114 H Respiratory Rate Blood Pressure 114/83 110/85 Blood Pressure [Orthostatic Lying] 112/77 Blood Pressure [Orthostatic Sitting] 114/83 Blood Pressure [Orthostatic Standing] 110/85 Pulse Oximetry 99 100 98 03/03/20 17:54 Temperature Pulse Rate 69 Pulse Rate [Orthostatic Lying] Pulse Rate [Orthostatic Sitting] Pulse Rate [Orthostatic Standing] Respiratory Rate Blood Pressure 120/72 Blood Pressure [Orthostatic Lying] Blood Pressure [Orthostatic Sitting] Blood Pressure [Orthostatic Standing] Pulse Oximetry 97 <Yamileth Lozano, DO - Last Filed: 03/03/20 19:17> Orders Ordered: ED Orders 03/03/20 11:47 Basic Metabolic Panel Stat Comprehensive Metabolic Panel Stat HCG Quantitative /Beta subunit Stat Magnesium Stat Thyroid Stimulating Hormone Stat Troponin & CK Cardiac Panel Stat Type and Screen Stat 03/03/20 12:26 XR chest 2V Stat 03/03/20 12:30 Complete Blood Count AUTO DIFF Stat 03/03/20 12:38 EKG-12 Lead Stat 03/03/20 13:03 Urine Culture Stat Urine Microscopic Stat 03/03/20 13:15 US pelvic complete Stat Discontinued Medications Sodium Chloride (Normal Saline 0.9%) 1,000 mls @ 1,000 mls/hr IV BOLUS ONE Stop: 03/03/20 13:26 Last Infusion: 03/03/20 15:15 Dose: 0 mls/hr Documented by: Admin: 03/03/20 13:30 Dose: 1,000 mls/hr Documented by: TERI Sodium Chloride (Normal Saline 0.9%) 500 mls @ 1,000 mls/hr IV BOLUS ONE Stop: 03/03/20 16:51 Last Admin: 03/03/20 16:39 Dose: Not Given Documented by: TERI Sodium Chloride (Normal Saline 0.9%) 1,000 mls @ 1,000 mls/hr IV BOLUS ONE Stop: 03/03/20 17:33 Last Infusion: 03/03/20 17:40 Dose: 0 mls/hr Documented by: Admin: 03/03/20 16:38 Dose: 1,000 mls/hr Documented by: TERI Ketorolac Tromethamine (Ketorolac 60 Mg/2 Ml Vial) 15 mg IV NOW ONE Stop: 03/03/20 16:23 Last Admin: 03/03/20 16:38 Dose: 15 mg Documented by: TERI Ondansetron HCl (Ondansetron 4 Mg Odt) 4 mg SL NOW ONE Stop: 03/03/20 13:11 Last Admin: 03/03/20 13:38 Dose: Not Given Documented by: TERI Vital Signs Vital signs: Vital Signs - 8 hr 03/03/20 11:43 03/03/20 12:54 03/03/20 13:00 Temperature 98.1 F Pulse Rate 109 H 71 66 Pulse Rate [Orthostatic Lying] Pulse Rate [Orthostatic Sitting] Pulse Rate [Orthostatic Standing] Respiratory Rate 15 Blood Pressure 134/86 118/83 109/76 Blood Pressure [Orthostatic Lying] Blood Pressure [Orthostatic Sitting] Blood Pressure [Orthostatic Standing] Pulse Oximetry 100 99 99 03/03/20 13:30 03/03/20 14:00 03/03/20 14:30 Temperature Pulse Rate 66 60 58 L Pulse Rate [Orthostatic Lying] Pulse Rate [Orthostatic Sitting] Pulse Rate [Orthostatic Standing] Respiratory Rate Blood Pressure 107/71 114/77 109/71 Blood Pressure [Orthostatic Lying] Blood Pressure [Orthostatic Sitting] Blood Pressure [Orthostatic Standing] Pulse Oximetry 99 99 98 03/03/20 15:00 03/03/20 15:30 03/03/20 16:18 Temperature Pulse Rate 55 L 83 Pulse Rate [Orthostatic Lying] Pulse Rate [Orthostatic Sitting] Pulse Rate [Orthostatic Standing] Respiratory Rate Blood Pressure 107/73 109/72 112/77 Blood Pressure [Orthostatic Lying] Blood Pressure [Orthostatic Sitting] Blood Pressure [Orthostatic Standing] Pulse Oximetry 97 97 100 03/03/20 16:20 03/03/20 16:21 03/03/20 16:27 Temperature Pulse Rate 112 H 103 H 114 H Pulse Rate [Orthostatic Lying] 83 Pulse Rate [Orthostatic Sitting] 94 H Pulse Rate [Orthostatic Standing] 114 H Respiratory Rate Blood Pressure 114/83 110/85 Blood Pressure [Orthostatic Lying] 112/77 Blood Pressure [Orthostatic Sitting] 114/83 Blood Pressure [Orthostatic Standing] 110/85 Pulse Oximetry 99 100 98 03/03/20 17:54 Temperature Pulse Rate 69 Pulse Rate [Orthostatic Lying] Pulse Rate [Orthostatic Sitting] Pulse Rate [Orthostatic Standing] Respiratory Rate Blood Pressure 120/72 Blood Pressure [Orthostatic Lying] Blood Pressure [Orthostatic Sitting] Blood Pressure [Orthostatic Standing] Pulse Oximetry 97 MDM - OB/Uterine Contractions <KIP Garibay - Last Filed: 03/03/20 18:08> Differential Diagnosis Differential diagnosis: Likely other (menorrhagia, endometriosis, hormone imbalance, anemia, hyperplasia, uterine polyps, adenomyosis, ACS, dehydration, anemia) Medical Records Attestation: I reviewed the patient's medical records. Lab Data Attestation: I reviewed the patient's lab results. Result diagrams: 03/03/20 12:30 03/03/20 11:47 Labs: Lab Results 03/03/20 03/03/20 03/03/20 Range/Units 11:47 11:47 11:47 WBC (4.5-11.0) X10^3/uL RBC (4.0-5.2) X10^6/uL Hgb (12.0-16.0) g/dL Hct (36-46) % MCV (80-100) fL MCH (26-34) PG MCHC (30-36) % RDW (11.6-14.8) % Plt Count (150-400) X10^3/uL Neut % (Auto) (50-75) % Lymph % (Auto) (25-40) % [place] % (Auto) (3-14) % Eos % (Auto) (2-4) % Baso % (Auto) (0-2) % Neut # (Auto) (4363-3579) /uL Lymph # (Auto) (7368-3158) /uL [place] # (Auto) (0-900) /uL Eos # (Auto) (0-450) /uL Baso # (Auto) (0-100) /uL Sodium 140 (137-145) mmol/L Potassium 3.8 (3.4-5.1) mmol/L Chloride 104 (98-107) mmol/L Carbon Dioxide 29 (22-32) mmol/L BUN 12 (7-17) mg/dL Creatinine 0.65 (0.52-1.04) mg/dL Estimated GFR > 60.0 (>60) mL/min BUN/Creatinine Ratio 18.5 (6-22) Glucose 114 H (70-100) mg/dL Calcium 9.3 (8.4-10.2) mg/dL Magnesium (1.6-2.3) mg/dL Total Bilirubin (0.2-1.3) mg/dL AST (14-36) IU/L ALT (<35) IU/L Alkaline Phosphatase (38-126) U/L Total Creatine Kinase 111 (30-135) U/L CK-MB (CK-2) 1.78 (<2.37) ng/mL CK-MB (CK-2) Rel Index 1.6 (1.5-5.0) % Troponin I < 0.012 (0.01-0.034) ng/mL Total Protein (6.3-8.2) g/dL Albumin (3.5-5.0) g/dL Globulin (1.7-4.1) g/dL Albumin/Globulin Ratio (1.0-2.8) TSH (0.47-4.68) uIU/mL HCG, Quant mIU/mL Urine RBC (0-5/HPF) Urine WBC (0-5/HPF) Ur Squamous Epith Cells (0-5/HPF) Amorphous Sediment Urine Bacteria (None) Urine Mucus (Negative) Ur Culture Indicated? Blood Type O Negative Antibody Screen Negative 03/03/20 03/03/20 03/03/20 Range/Units 11:47 11:47 11:47 WBC (4.5-11.0) X10^3/uL RBC (4.0-5.2) X10^6/uL Hgb (12.0-16.0) g/dL Hct (36-46) % MCV (80-100) fL MCH (26-34) PG MCHC (30-36) % RDW (11.6-14.8) % Plt Count (150-400) X10^3/uL Neut % (Auto) (50-75) % Lymph % (Auto) (25-40) % [place] % (Auto) (3-14) % Eos % (Auto) (2-4) % Baso % (Auto) (0-2) % Neut # (Auto) (7091-3289) /uL Lymph # (Auto) (8495-4222) /uL [place] # (Auto) (0-900) /uL Eos # (Auto) (0-450) /uL Baso # (Auto) (0-100) /uL Sodium 139 (137-145) mmol/L Potassium 3.7 (3.4-5.1) mmol/L Chloride 104 (98-107) mmol/L Carbon Dioxide 29 (22-32) mmol/L BUN 12 (7-17) mg/dL Creatinine 0.63 (0.52-1.04) mg/dL Estimated GFR > 60.0 (>60) mL/min BUN/Creatinine Ratio 19.0 (6-22) Glucose 116 H (70-100) mg/dL Calcium 9.4 (8.4-10.2) mg/dL Magnesium (1.6-2.3) mg/dL Total Bilirubin 0.4 (0.2-1.3) mg/dL AST 25 (14-36) IU/L ALT 15 (<35) IU/L Alkaline Phosphatase 79 (38-126) U/L Total Creatine Kinase (30-135) U/L CK-MB (CK-2) (<2.37) ng/mL CK-MB (CK-2) Rel Index (1.5-5.0) % Troponin I (0.01-0.034) ng/mL Total Protein 8.5 H (6.3-8.2) g/dL Albumin 4.4 (3.5-5.0) g/dL Globulin 4.1 (1.7-4.1) g/dL Albumin/Globulin Ratio 1.1 (1.0-2.8) TSH 27.0 H (0.47-4.68) uIU/mL HCG, Quant < 2.4 mIU/mL Urine RBC (0-5/HPF) Urine WBC (0-5/HPF) Ur Squamous Epith Cells (0-5/HPF) Amorphous Sediment Urine Bacteria (None) Urine Mucus (Negative) Ur Culture Indicated? Blood Type Antibody Screen 03/03/20 03/03/20 03/03/20 Range/Units 11:47 12:30 13:03 WBC 8.1 (4.5-11.0) X10^3/uL RBC 4.45 (4.0-5.2) X10^6/uL Hgb 12.5 (12.0-16.0) g/dL Hct 38.3 (36-46) % MCV 86.1 (80-100) fL MCH 28.1 (26-34) PG MCHC 32.6 (30-36) % RDW 13.3 (11.6-14.8) % Plt Count 222 (150-400) X10^3/uL Neut % (Auto) 71.0 (50-75) % Lymph % (Auto) 23.3 L (25-40) % [place] % (Auto) 3.5 (3-14) % Eos % (Auto) 1.6 L (2-4) % Baso % (Auto) 0.6 (0-2) % Neut # (Auto) 5700 (9693-3336) /uL Lymph # (Auto) 1900 (8827-2475) /uL [place] # (Auto) 300 (0-900) /uL Eos # (Auto) 100 (0-450) /uL Baso # (Auto) 0 (0-100) /uL Sodium (137-145) mmol/L Potassium (3.4-5.1) mmol/L Chloride (98-107) mmol/L Carbon Dioxide (22-32) mmol/L BUN (7-17) mg/dL Creatinine (0.52-1.04) mg/dL Estimated GFR (>60) mL/min BUN/Creatinine Ratio (6-22) Glucose (70-100) mg/dL Calcium (8.4-10.2) mg/dL Magnesium 1.9 (1.6-2.3) mg/dL Total Bilirubin (0.2-1.3) mg/dL AST (14-36) IU/L ALT (<35) IU/L Alkaline Phosphatase (38-126) U/L Total Creatine Kinase (30-135) U/L CK-MB (CK-2) (<2.37) ng/mL CK-MB (CK-2) Rel Index (1.5-5.0) % Troponin I (0.01-0.034) ng/mL Total Protein (6.3-8.2) g/dL Albumin (3.5-5.0) g/dL Globulin (1.7-4.1) g/dL Albumin/Globulin Ratio (1.0-2.8) TSH (0.47-4.68) uIU/mL HCG, Quant mIU/mL Urine RBC 1-5/hpf (0-5/HPF) Urine WBC 5-10/hpf H (0-5/HPF) Ur Squamous Epith Cells 5-10 /hpf H (0-5/HPF) Amorphous Sediment 1+ Urine Bacteria Many (>30) H (None) Urine Mucus 2+ H (Negative) Ur Culture Indicated? Specimen cultured Blood Type Antibody Screen Point of Care Testing Test Results Negative Urine Dip Bedside Urine Glucose Negative Bedside Urine Bilirubin + 1 Bedside Urine Ketone - Negative Urine Specific [place] 1.030 Bedside Urine Occult Blood ++ Bedside Urine pH 6.0 Bedside Urine Urobilinogen - Negative Bedside Urine Nitrite - Negative Bedside Urine Leukocytes - Negative Esterase Imaging Data Chest x-ray: Radiologist's Impression: [address] [id number] ReportSigned Patient: Heidi Anne [facility]#: [id number]: 1990Acct:[id number]/Sex: 29 FDate of Service: 03/03/20Loc: EDAccession Number: [id number] Procedure: XR chest 2V Ordering Provider: Darien Menjivar PROCEDURE: XR CHEST 2V INDICATIONS: right upper chest pain TECHNIQUE: 2 views of the chest were acquired. COMPARISON: None. FINDINGS: Surgical changes and devices: None. Lungs and pleura: Lungs are clear. No pleural effusions or pneumothorax. Mediastinum: Mediastinal contours are normal. Heart size is normal. Bones and chest wall: No suspicious bony abnormalities. Soft tissues appear unremarkable. IMPRESSION: No acute cardiopulmonary disease. Dictated by: Carlin Gould M.D. on 03/03/2020 at 13:40 Approved by: Carlin Gould M.D. on 03/03/2020 at 13:41 US - TIMEKEEPING SUPERVISOR: Radiologist's Impression: [address] [id number] ReportSigned Patient: Heidi Anne [facility]#: [id number]: 1990Acct:[id number]/Sex: FDate of Service: 03/03/20Loc: EDAccession Number: [id number] Procedure: US pelvic complete Ordering Provider: Darien Menjivar PROCEDURE: US PELVIC COMPLETE INDICATIONS: HEAVY MENSTRUATION X 20 DAYS TECHNIQUE: Real-time scanning was performed of the pelvic organs, with image documentation. Additional endovaginal scanning was necessary due to incomplete visualization of the adnexal and endometrial structures by transabdominal scanning. COMPARISON: None. FINDINGS: Transabdominal scanning: Limited scanning through the kidneys shows no hydronephrosis. No pathologic free abdominal or pelvic fluid. Endovaginal scanning: Uterus: Uterus is normal in size at 8.1 x 4.9 x 3.4 cm. The endometrium measures 7 mm in combined thickness. A small irregular fluid collection is seen within the anterior endometrium measuring up to 5 mm in maximum dimension. Several tiny echogenic microcalcifications are also seen in the endometrium. Ovaries: The right ovary measures 3.3 x 3.3 x 2.0 cm. A right ovarian functional cyst measures 2.2 x 2.2 x 1.3 cm with associated daughter cyst. The left ovary measures 3.0 x 1.8 x 1.4 cm. Bilateral ovarian arterial and venous blood flow is seen. IMPRESSION: Endometrial thickness is within normal limits for age. However, the junctional zone is poorly visualized and there is a 5 mm subendometrial cyst, which can be seen in the setting of adenomyosis. Nonspecific endometrial microcalcifications are present. Dictated by: Dru Weiss M.D. on 03/03/2020 at 14:40 Approved by: Dru Weiss M.D. on 03/03/2020 at 14:49 ECG Data Attestation: I personally reviewed and interpreted this ECG as follows: Prior ECG tracings: not available for review Interpretation: Sinus rhythm rate at 68. NOrmal axis. CA interval 140, QRS duration 90, QT/QTC 412/429 Nonspecific T-wave abnormality (flat) MDM Narrative Medical decision making narrative: This is a 29-year-old female who presents to ED with multiple chief complaints with prolonged and heavy menstrual bleeding, right side chest pain, dizziness, not feeling well. Patient has been on levothyroxine since 2 months ago and started menstruation after patient did not have for near 2 years. Patient also had taken Plan B prior having vaginal bleeding for unprotected sex and before starting hep C treatment. Patient has history of substance and opioid dependency and receiving methadone treatment. She had negative test a couple of weeks ago before starting hep C treatment with Mavyret. EKG with sinus rhythm without acute ST changes. Cardiac enzymes are negative. Chest x-ray without acute findings. Patient's H&H is stable without anemia. No leukocytosis. Unremarkable chemistry test. TSH is elevated to 27.0. It is not sure if this is improving since patient has started on levothyroxine. Patient advised to follow-up with PCP to discuss to day's findings and possible medication adjustment. No indications for UTI with negative urine leuks and nitrites. Urine cultures pending and possibly patient provided contaminated urine sample with positive urine squamous epithelia cells. US of pelvic results with normal endometrial thickness. However, the junctional zone is poorly visualized and there is 5 mm subendometrial cyst and could be indicating adenomyosis. Unremarkable bilateral ovaries. Patient had difficult IV start and had to call [employer] and had received 1 L of normal saline for hydration for tachycardia and dried over oral mucous membrane. Patient reports marginal improvement and continued to be orthostatic vital signs positive. Patient received another L of normal saline and IV toradal with much improvements. HR improved to 68 and within normal blood pressure before discharging to home. Patient advised to follow-up with PCP with return precautions. Patient verbalized understanding and agreement with treatment plan. Provided follow-up information with [employer] rep specialist for menorrhagia. <Yamileth Lozano, DO - Last Filed: 03/03/20 19:17> Lab Data Labs: Lab Results 03/03/20 03/03/20 03/03/20 Range/Units 11:47 11:47 11:47 WBC (4.5-11.0) X10^3/uL RBC (4.0-5.2) X10^6/uL Hgb (12.0-16.0) g/dL Hct (36-46) % MCV (80-100) fL MCH (26-34) PG MCHC (30-36) % RDW (11.6-14.8) % Plt Count (150-400) X10^3/uL Neut % (Auto) (50-75) % Lymph % (Auto) (25-40) % [place] % (Auto) (3-14) % Eos % (Auto) (2-4) % Baso % (Auto) (0-2) % Neut # (Auto) (2733-3413) /uL Lymph # (Auto) (5451-6969) /uL [place] # (Auto) (0-900) /uL Eos # (Auto) (0-450) /uL Baso # (Auto) (0-100) /uL Sodium 140 (137-145) mmol/L Potassium 3.8 (3.4-5.1) mmol/L Chloride 104 (98-107) mmol/L Carbon Dioxide 29 (22-32) mmol/L BUN 12 (7-17) mg/dL Creatinine 0.65 (0.52-1.04) mg/dL Estimated GFR > 60.0 (>60) mL/min BUN/Creatinine Ratio 18.5 (6-22) Glucose 114 H (70-100) mg/dL Calcium 9.3 (8.4-10.2) mg/dL Magnesium (1.6-2.3) mg/dL Total Bilirubin (0.2-1.3) mg/dL AST (14-36) IU/L ALT (<35) IU/L Alkaline Phosphatase (38-126) U/L Total Creatine Kinase 111 (30-135) U/L CK-MB (CK-2) 1.78 (<2.37) ng/mL CK-MB (CK-2) Rel Index 1.6 (1.5-5.0) % Troponin I < 0.012 (0.01-0.034) ng/mL Total Protein (6.3-8.2) g/dL Albumin (3.5-5.0) g/dL Globulin (1.7-4.1) g/dL Albumin/Globulin Ratio (1.0-2.8) TSH (0.47-4.68) uIU/mL HCG, Quant mIU/mL Urine RBC (0-5/HPF) Urine WBC (0-5/HPF) Ur Squamous Epith Cells (0-5/HPF) Amorphous Sediment Urine Bacteria (None) Urine Mucus (Negative) Ur Culture Indicated? Blood Type O Negative Antibody Screen Negative 03/03/20 03/03/20 03/03/20 Range/Units 11:47 11:47 11:47 WBC (4.5-11.0) X10^3/uL RBC (4.0-5.2) X10^6/uL Hgb (12.0-16.0) g/dL Hct (36-46) % MCV (80-100) fL MCH (26-34) PG MCHC (30-36) % RDW (11.6-14.8) % Plt Count (150-400) X10^3/uL Neut % (Auto) (50-75) % Lymph % (Auto) (25-40) % [place] % (Auto) (3-14) % Eos % (Auto) (2-4) % Baso % (Auto) (0-2) % Neut # (Auto) (7428-2039) /uL Lymph # (Auto) (2465-5222) /uL [place] # (Auto) (0-900) /uL Eos # (Auto) (0-450) /uL Baso # (Auto) (0-100) /uL Sodium 139 (137-145) mmol/L Potassium 3.7 (3.4-5.1) mmol/L Chloride 104 (98-107) mmol/L Carbon Dioxide 29 (22-32) mmol/L BUN 12 (7-17) mg/dL Creatinine 0.63 (0.52-1.04) mg/dL Estimated GFR > 60.0 (>60) mL/min BUN/Creatinine Ratio 19.0 (6-22) Glucose 116 H (70-100) mg/dL Calcium 9.4 (8.4-10.2) mg/dL Magnesium (1.6-2.3) mg/dL Total Bilirubin 0.4 (0.2-1.3) mg/dL AST 25 (14-36) IU/L ALT 15 (<35) IU/L Alkaline Phosphatase 79 (38-126) U/L Total Creatine Kinase (30-135) U/L CK-MB (CK-2) (<2.37) ng/mL CK-MB (CK-2) Rel Index (1.5-5.0) % Troponin I (0.01-0.034) ng/mL Total Protein 8.5 H (6.3-8.2) g/dL Albumin 4.4 (3.5-5.0) g/dL Globulin 4.1 (1.7-4.1) g/dL Albumin/Globulin Ratio 1.1 (1.0-2.8) TSH 27.0 H (0.47-4.68) uIU/mL HCG, Quant < 2.4 mIU/mL Urine RBC (0-5/HPF) Urine WBC (0-5/HPF) Ur Squamous Epith Cells (0-5/HPF) Amorphous Sediment Urine Bacteria (None) Urine Mucus (Negative) Ur Culture Indicated? Blood Type Antibody Screen 03/03/20 03/03/20 03/03/20 Range/Units 11:47 12:30 13:03 WBC 8.1 (4.5-11.0) X10^3/uL RBC 4.45 (4.0-5.2) X10^6/uL Hgb 12.5 (12.0-16.0) g/dL Hct 38.3 (36-46) % MCV 86.1 (80-100) fL MCH 28.1 (26-34) PG MCHC 32.6 (30-36) % RDW 13.3 (11.6-14.8) % Plt Count 222 (150-400) X10^3/uL Neut % (Auto) 71.0 (50-75) % Lymph % (Auto) 23.3 L (25-40) % [place] % (Auto) 3.5 (3-14) % Eos % (Auto) 1.6 L (2-4) % Baso % (Auto) 0.6 (0-2) % Neut # (Auto) 5700 (3902-4797) /uL Lymph # (Auto) 1900 (5435-9319) /uL [place] # (Auto) 300 (0-900) /uL Eos # (Auto) 100 (0-450) /uL Baso # (Auto) 0 (0-100) /uL Sodium (137-145) mmol/L Potassium (3.4-5.1) mmol/L Chloride (98-107) mmol/L Carbon Dioxide (22-32) mmol/L BUN (7-17) mg/dL Creatinine (0.52-1.04) mg/dL Estimated GFR (>60) mL/min BUN/Creatinine Ratio (6-22) Glucose (70-100) mg/dL Calcium (8.4-10.2) mg/dL Magnesium 1.9 (1.6-2.3) mg/dL Total Bilirubin (0.2-1.3) mg/dL AST (14-36) IU/L ALT (<35) IU/L Alkaline Phosphatase (38-126) U/L Total Creatine Kinase (30-135) U/L CK-MB (CK-2) (<2.37) ng/mL CK-MB (CK-2) Rel Index (1.5-5.0) % Troponin I (0.01-0.034) ng/mL Total Protein (6.3-8.2) g/dL Albumin (3.5-5.0) g/dL Globulin (1.7-4.1) g/dL Albumin/Globulin Ratio (1.0-2.8) TSH (0.47-4.68) uIU/mL HCG, Quant mIU/mL Urine RBC 1-5/hpf (0-5/HPF) Urine WBC 5-10/hpf H (0-5/HPF) Ur Squamous Epith Cells 5-10 /hpf H (0-5/HPF) Amorphous Sediment 1+ Urine Bacteria Many (>30) H (None) Urine Mucus 2+ H (Negative) Ur Culture Indicated? Specimen cultured Blood Type Antibody Screen Point of Care Testing Test Results Negative Urine Dip Bedside Urine Glucose Negative Bedside Urine Bilirubin + 1 Bedside Urine Ketone - Negative Urine Specific [place] 1.030 Bedside Urine Occult Blood ++ Bedside Urine pH 6.0 Bedside Urine Urobilinogen - Negative Bedside Urine Nitrite - Negative Bedside Urine Leukocytes - Negative Esterase Discharge Plan Departure Patient Disposition: Home Clinical Impression: Atypical chest pain, Dehydration Menorrhagia Qualifiers: Menorrhagia type: with irregular cycle Qualified Code(s): N92.1 - Excessive and frequent menstruation with irregular cycle Hypothyroid Qualifiers: Hypothyroidism type: unspecified Qualified Code(s): E03.9 - Hypothyroidism, unspecified Instructions: DI for Atypical Chest Pain, DI for Menorrhagia, DI for Hypothyroidism Activity Restrictions/Additional Instructions: You have been diagnosed with [menorrhagia (heavy menstural bleeding), hypothyroidism, atypical chest pain, dehydration. No signs of anemia, negative cardiac enzyme with normal EKG, unremarkable chemistry test. Pelvic ultrasound indicates 5 mm sub adenoma atrial cyst at the junctional zone. Negative test. You have received with 2 L of normal saline and treated with IV Toradol. Elevated TSH level to 27.0. Since you have just started taking levothyroxine 2 months ago due to hypothyroidism, please relate this findings to primary care physician for possible medication adjustment. Your symptoms may related to thyroid hormone test. Please continue to hydrate adequately specially when her symptomatic with dizziness.]. What to do: *Take your medications as directed. Please take [id number] Tylenol and or Motrin as needed for discomfort. Motrin will be helpful with cramping discomfort and decreased in vaginal bleeding. *Follow up with your primary care provider in 2-3 days, call for an appointment. Let them know you were seen in the ED and that we asked you to be seen in follow up. Please contact [employer] [facility] specialist if vaginal bleeding continues. *Return to ED if you have any new, worsening, or concerning symptoms, such as [different or worsening chest pain, breathing difficulty, worsening dizziness, fever, unable to tolerate fluids or any acute concerns.]. Prescriptions: No Action citalopram 10 mg Tablet 10 mg PO QAM RF: 0 olanzapine 5 mg Tablet 5 mg PO BEDTIME RF: 0 levothyroxine 100 mcg Tablet 100 mcg PO QAM RF: 0 methadone [Methadone Intensol] 10 mg/mL Concentrate 148 mg PO DAILY RF: 0 Referrals: [place] MD [Physician] - <Yamileth Lozano DO - Last Filed: 03/03/20 19:17> Cosign ED Attending Terrieature Attestation: I was immediately available in the department for consultation. Documentation has been reviewed. I agree with assessment and plan.
--- NOTE | 2020-03-03 12:41 | PC.NURSE ---
Attempted IV start x2, Lab came and unable to start IV. Nahomy from DI to come with US
[2020-03-03 13:15] LABS: RBC Urine 1-5/HPF (0-5/HPF)
--- NOTE | 2020-03-03 13:15 | DI.US.S_ITS ---
PROCEDURE: US PELVIC COMPLETE INDICATIONS: HEAVY MENSTRUATION X 20 DAYS TECHNIQUE: Real-time scanning was performed of the pelvic organs, with image documentation. Additional endovaginal scanning was necessary due to incomplete visualization of the adnexal and endometrial structures by transabdominal scanning. COMPARISON: None. FINDINGS: Transabdominal scanning: Limited scanning through the kidneys shows no hydronephrosis. No pathologic free abdominal or pelvic fluid. Endovaginal scanning: Uterus: Uterus is normal in size at 8.1 x 4.9 x 3.4 cm. The endometrium measures 7 mm in combined thickness. A small irregular fluid collection is seen within the anterior endometrium measuring up to 5 mm in maximum dimension. Several tiny echogenic microcalcifications are also seen in the endometrium. Ovaries: The right ovary measures 3.3 x 3.3 x 2.0 cm. A right ovarian functional cyst measures 2.2 x 2.2 x 1.3 cm with associated daughter cyst. The left ovary measures 3.0 x 1.8 x 1.4 cm. Bilateral ovarian arterial and venous blood flow is seen. IMPRESSION: Endometrial thickness is within normal limits for age. However, the junctional zone is poorly visualized and there is a 5 mm subendometrial cyst, which can be seen in the setting of adenomyosis. Nonspecific endometrial microcalcifications are present. Dictated by: Dru Weiss M.D. on 03/03/2020 at 14:40 Approved by: Dru Weiss M.D. on 03/03/2020 at 14:49
[2020-03-03 13:16] LABS: Amorphous Sediment Urine 1+; Bacteria Urine Many (>30); Culture Indicated Urine Specimen Cultured; Mucus Urine 2+ (Negative); Squamous Epithelial Cell Urine 5-10 /HPF (0-5/HPF); WBC Urine 5-10/HPF (0-5/HPF)
[2020-03-03] MEDS: SODIUM CHLORIDE 0.9% 1,000 ML 1000 ML IV ×2 (13:30→16:38)
[2020-03-03 13:51] LABS: Add Manual Diff / Slide Review NO; Basophils Absolute Auto 0 /uL (0-100); Basophils Percent Auto 0.6 % (0-2); Eosinophils Absolute Auto 100 /uL (0-450); Eosinophils Percent Auto 1.6 % (2-4); Hematocrit 38.3 % (36-46); Hemoglobin 12.5 g/dL (12.0-16.0); Lymphocytes Absolute Auto 1900 /uL (1100-4500); Lymphocytes Percent Auto 23.3 % (25-40); Mean Corpuscular HGB Conc 32.6 % (30-36); Mean Corpuscular Hemoglobin 28.1 PG (26-34); Mean Corpuscular Volume 86.1 fL (80-100); Monocytes Absolute Auto 300 /uL (0-900); Monocytes Percent Auto 3.5 % (3-14); Neutrophils Absolute Auto 5700 /uL (1500-7000); Platelet Count 222 X10^3/uL (150-400); Red Blood Cell Count 4.45 X10^6/uL (4.0-5.2); Red Cell Distribution Width 13.3 % (11.6-14.8); White Blood Cell Count 8.1 X10^3/uL (4.5-11.0)
[2020-03-03 14:09] LABS: BUN Creatinine Ratio 18.5 (6-22); Blood Urea Nitrogen 12 mg/dL (7-17); Calcium 9.3 mg/dL (8.4-10.2); Carbon Dioxide 29 mmol/L (22-32); Chloride 104 mmol/L (98-107); Estimated Glomerular Filt Rate > 60.0 mL/min (>60); Glucose 114 mg/dL (70-100); HEMOLYSIS < 15 (0-50); Potassium 3.8 mmol/L (3.4-5.1); Sodium 140 mmol/L (137-145)
[2020-03-03 14:43] LABS: HCG Quantitative /Beta subunit < 2.4 mIU/mL
[2020-03-03 15:24] LABS: Alanine Aminotransferase 15 IU/L (<35); Albumin 4.4 g/dL (3.5-5.0); Albumin Globulin Ratio 1.1 (1.0-2.8); Alkaline Phosphatase 79 U/L (38-126); Aspartate Aminotransferase 25 IU/L (14-36); Bilirubin Total 0.4 mg/dL (0.2-1.3); Blood Urea Nitrogen 12 mg/dL (7-17); Calcium 9.4 mg/dL (8.4-10.2); Carbon Dioxide 29 mmol/L (22-32); Chloride 104 mmol/L (98-107); Estimated Glomerular Filt Rate > 60.0 mL/min (>60); Globulin 4.1 g/dL (1.7-4.1); Glucose 116 mg/dL (70-100); HEMOLYSIS < 15 (0-50); Potassium 3.7 mmol/L (3.4-5.1); Sodium 139 mmol/L (137-145); Total Protein 8.5 g/dL (6.3-8.2)
[2020-03-03 15:30] LABS: Creatine Kinase 111 U/L (30-135)
[2020-03-03 15:42] LABS: Troponin I < 0.012 ng/mL (0.01-0.034)
[2020-03-03 15:45] LABS: CKMB % Relative Index 1.6 % (1.5-5.0); Creatine Kinase MB 1.78 ng/mL (<2.37)
--- NOTE | 2020-03-03 16:27 | PC.NURSE ---
pt stated that she felt too dizzy to ambulate. She states that she feels fine when she lays down but as soon as she gets up she feels like she is going to pass out. HR 114 while standing. Pt expressed that she was very frustrated because no one can figure out why she feels this way. TERRIE Burnham aware of failed ambulation trial
[2020-03-03] MEDS: KETOROLAC 60 MG/2 ML VIAL 15 MG IV (16:38)
[2020-03-03 17:19] LABS: Magnesium 1.9 mg/dL (1.6-2.3)
== END 2020-03-03 17:54 | disposition home or self-care (01) ==
PROVIDERS: Emergency Medicine; Emergency Provider Nurse Practitioner Family
DX: R07.89 Other chest pain (principal); E86.0 Dehydration; N92.1 Excessive and frequent menstruation with irregular cycle; E03.9 Hypothyroidism, unspecified; R10.30 Lower abdominal pain, unspecified; R11.0 Nausea; R42 Dizziness and giddiness; R00.0 Tachycardia, unspecified
CPT/HCPCS: 36415; 71046; 76856; 80048; 80053; 81003; 81015; 81025; 82550; 82553; 83735; 84443; 84484; 84702; 85025; 86850; 86900; 86901; 87077; 87086; 87186; 93005; 96361; 96374; 99284; J1885

== ENCOUNTER 2024-01-09 13:03 | Emergency (ER) | payer OTHER, MEDICAID, SELFPAY ==
[2024-01-09 13:17] VITALS: BP 119/74; PULSE 74; RESP 18; TEMP 36.8; O2SAT 99; BMI 22.4
[2024-01-09 14:08] LABS: Add Manual Diff / Slide Review NO; Basophils Absolute Auto 100 /uL (0-100); Basophils Percent Auto 1.3 % (0-2); Eosinophils Absolute Auto 300 /uL (0-450); Eosinophils Percent Auto 4.8 % (2-4); Hematocrit 34.3 % (36-46); Hemoglobin 11.5 g/dL (12.0-16.0); Lymphocytes Absolute Auto 2100 /uL (1100-4500); Lymphocytes Percent Auto 34.1 % (25-40); Mean Corpuscular HGB Conc 33.4 % (30-36); Mean Corpuscular Volume 86.7 fL (80-100); Monocytes Absolute Auto 500 /uL (0-900); Monocytes Percent Auto 7.6 % (3-14); Neutrophils Absolute Auto 3200 /uL (1500-7000); Neutrophils Percent Auto 52.2 % (50-75); Platelet Count 256 X10^3/uL (150-400); Red Blood Cell Count 3.95 X10^6/uL (4.0-5.2); Red Cell Distribution Width 13.6 % (11.6-14.8); White Blood Cell Count 6.1 X10^3/uL (4.5-11.0)
[2024-01-09 14:22] LABS: Alanine Aminotransferase 20 IU/L (<35); Albumin 4.4 g/dL (3.5-5.0); Albumin Globulin Ratio 1.4 (1.0-2.8); Alkaline Phosphatase 70 U/L (38-126); Aspartate Aminotransferase 25 IU/L (14-36); BUN Creatinine Ratio 14.6 (6-22); Bilirubin Total 0.4 mg/dL (0.2-1.3); Blood Urea Nitrogen 12 mg/dL (7-17); Calcium 9.3 mg/dL (8.4-10.2); Carbon Dioxide 30 mmol/L (22-32); Chloride 103 mmol/L (98-107); Estimated Glomerular Filt Rate > 60 mL/min (>60); Globulin 3.1 g/dL (1.7-4.1); Glucose 77 mg/dL (70-100); HEMOLYSIS < 15 (0-50); Sodium 139 mmol/L (137-145); Total Protein 7.5 g/dL (6.3-8.2)
[2024-01-09 14:39] LABS: Urine Volume 10mL (spun)
[2024-01-09 14:40] LABS: Bacteria Urine None Seen; Culture Indicated Urine Specimen Cultured; RBC Urine None Seen (0-5/HPF); Squamous Epithelial Cell Urine 5-10 /HPF (0-5/HPF); WBC Urine 1-5/HPF (0-5/HPF)
[2024-01-09 15:17] LABS: Urine Chlamydia NOT DETECTED; Urine N gonorrhoeae NOT DETECTED
[2024-01-09 15:57] LABS: HIV 1 & 2 Ab/Ag 4th Gen Combo NEGATIVE (NEGATIVE)
--- NOTE | 2024-01-09 16:08 | ED_ITS ---
HPI - Abdominal Pain <Raven Duran PA-C - Last Filed: 01/09/24 16:21> General Chief Complaint: Abdominal Pain Stated Complaint: gastic and abd px blood in urine Time Seen by Provider: 01/09/24 14:02 Source: patient Mode of arrival: Ambulatory History of Present Illness HPI narrative: 33-year-old female with past medical history polysubstance use, smoker presents to the ED with 1 month of intermittent vaginal spotting, increased vaginal discharge which patient describes as with a fishy odor. Patient also endorses some abdominal cramping. Denies fever, chills, chest pain, shortness of breath, dysuria, lightheadedness, dizziness, syncope. Patient's last period was 1 week ago. Patient states that she has a new sexual partner, expresses interest in getting an STI panel. Endorses constipation. Related Data Home Medications Medication Instructions Recorded Confirmed citalopram 10 mg tablet 10 mg PO QAM 01/06/20 01/06/20 levothyroxine 100 mcg tablet 100 mcg PO QAM 01/06/20 01/06/20 methadone 10 mg/mL oral 148 mg PO DAILY 01/06/20 01/06/20 concentrate (Methadone Intensol) olanzapine 5 mg tablet 5 mg PO BEDTIME 01/06/20 01/06/20 Previous Rx's Medication Instructions Recorded metronidazole 500 mg tablet 500 mg PO Q12H 7 days #14 tabs 01/09/24 Allergies Allergy/AdvReac Type Severity Reaction Status Date / Time sulfamethoxazole AdvReac Intermediate RASH Verified 01/09/24 13:17 [From BACTRIM] trimethoprim [From BACTRIM] AdvReac Intermediate RASH Verified 01/09/24 13:17 hydrocodone [From VICODIN] AdvReac Mild RASH Verified 01/09/24 13:17 morphine [MORPHINE] AdvReac Mild ANXIETY, Verified 01/09/24 13:17 PRURITIS Review of Systems <Raven Duran PA-C - Last Filed: 01/09/24 16:21> Constitutional Constitutional: Denies chills, Denies fatigue, Denies fever(s), Denies frequent falls, Denies lethargy and Denies weakness Eyes Eyes: Denies change in vision, Denies eye discharge, Denies irritation and Denies loss of vision ENT Ears, Nose, Mouth, and Throat: Denies change in voice, Denies dizziness, Denies neck pain, Denies sore throat and Denies throat swelling Cardiovascular Cardiovascular: Denies chest pain, Denies irregular heart rhythm, Denies lightheadedness, Denies palpitations, Denies dyspnea, Denies dyspnea on exertion and Denies orthopnea Respiratory Respiratory: Denies cough, Denies dyspnea, Denies dyspnea on exertion and Denies wheezing Gastrointestinal Gastrointestinal: Denies abdominal pain, Denies change in bowel habits, Denies diarrhea, Denies nausea and Denies vomiting Genitourinary Genitourinary: Reports abnormal vaginal bleeding, Reports pelvic pain, Reports vaginal discharge and Reports vaginal odor Musculoskeletal Musculoskeletal: Denies neck pain and Denies numbness Integumentary/Breasts Skin/Breast: Denies pruritus, Denies erythema, Denies rash and Denies wounds Neurologic Neurologic: Denies behavioral changes, Denies confusion, Denies dizziness, Denies frequent falls, Denies loss of vision, Denies numbness and Denies weakness Psychiatric Psychiatric: Denies anxiety, Denies behavioral changes, Denies confusion, Denies depression, Denies homicidal ideation and Denies suicidal ideation Endocrine Endocrine: Denies fatigue, Denies flushing and Denies palpitations Hematologic/Lymphatic Hematologic/Lymphatic: Denies easy bruising Allergic/Immunologic Allergic/Immunologic: Denies urticaria, Denies throat swelling and Denies wheezing Patient History <Raven Duran PA-C - Last Filed: 01/09/24 16:21> Medical History Polysubstance abuse (05/20/15) Social History Smoking Status: Current every day smoker Smoking Status: Current every day smoker alcohol intake frequency: holidays/special occasions only Substance Use Type: marijuana, heroin and methamphetamine Exam <Raven Duran PA-C - Last Filed: 01/09/24 16:21> Narrative Exam Narrative: Const General:?cooperative, healthy appearing and comfortable [facility] Head:?normal to inspection Ears:?hearing grossly normal bilaterally Nose:?external nose normal Face and sinus:?normal facial exam and sinuses nontender Mouth:?oral mucosae normal Throat:?posterior oropharynx normal Eyes General:?appearance normal, both eyes and all related structures Neck Neck:?normal visual inspection and no lymphadenopathy noted Resp Effort & Inspection:?normal respiratory effort Auscultation:?clear to auscultation bilaterally Cardio Rate:?regular rate Rhythm:?regular rhythm GI Abdomen is soft, nondistended, nontender to palpation. Neuro General:?patient alert, patient awake and patient oriented x3 Initial Vital Signs Initial Vital Signs: Vital Signs Temperature 98.2 F 01/09/24 13:17 Pulse Rate 74 01/09/24 13:17 Respiratory Rate 18 01/09/24 13:17 Blood Pressure 119/74 01/09/24 13:17 Pulse Oximetry 99 01/09/24 13:17 Oxygen Delivery Method Room Air 01/09/24 13:17 <Anastasia Vieyra DO - Last Filed: 01/09/24 18:38> Initial Vital Signs Initial Vital Signs: Vital Signs Temperature 98.2 F 01/09/24 13:17 Pulse Rate 74 01/09/24 13:17 Respiratory Rate 18 01/09/24 13:17 Blood Pressure 119/74 01/09/24 13:17 Pulse Oximetry 99 01/09/24 13:17 Oxygen Delivery Method Room Air 01/09/24 13:17 Course <Raven Duran PA-C - Last Filed: 01/09/24 16:21> Orders Ordered: ED Orders 01/09/24 13:44 Chlamydia Gonorrhea PCR -URINE Stat 01/09/24 14:00 Complete Blood Count AUTO DIFF Stat Comprehensive Metabolic Panel Stat HIV 1 & 2 Ab/Ag 4th Gen Combo Stat RPR W Reflex to Titer Stat Urine Culture Stat Urine Microscopic Stat 01/09/24 15:00 Wet Prep Tric BV Sophie Stat Vital Signs Vital signs: Vital Signs - 8 hr 01/09/24 13:17 01/09/24 16:16 Temperature 98.2 F 97.8 F Pulse Rate 74 57 L Respiratory Rate 18 19 Blood Pressure 119/74 124/73 Pulse Oximetry 99 96 Oxygen Delivery Method Room Air Room Air <DO Ari Solano Last Filed: 01/09/24 18:38> Orders Ordered: ED Orders 01/09/24 13:44 Chlamydia Gonorrhea PCR -URINE Stat 01/09/24 14:00 Complete Blood Count AUTO DIFF Stat Comprehensive Metabolic Panel Stat HIV 1 & 2 Ab/Ag 4th Gen Combo Stat RPR W Reflex to Titer Stat Urine Culture Stat Urine Microscopic Stat 01/09/24 15:00 Wet Prep Tric BV Sophie Stat Vital Signs Vital signs: Vital Signs - 8 hr 01/09/24 13:17 01/09/24 16:16 Temperature 98.2 F 97.8 F Pulse Rate 74 57 L Respiratory Rate 18 19 Blood Pressure 119/74 124/73 Pulse Oximetry 99 96 Oxygen Delivery Method Room Air Room Air MDM - Abdominal Pain <Hyma JUAQUIN Duran - Last Filed: 01/09/24 16:21> Lab Data 01/09/24 14:00 01/09/24 14:00 Labs: Lab Results 01/09/24 01/09/24 Range/Units 13:44 14:00 WBC 6.1 (4.5-11.0) X10^3/uL RBC 3.95 L (4.0-5.2) X10^6/uL Hgb 11.5 L (12.0-16.0) g/dL Hct 34.3 L (36-46) % MCV 86.7 (80-100) fL MCH 29.0 (26-34) PG MCHC 33.4 (30-36) % RDW 13.6 (11.6-14.8) % Plt Count 256 (150-400) X10^3/uL Neut % (Auto) 52.2 (50-75) % Lymph % (Auto) 34.1 (25-40) % [place] % (Auto) 7.6 (3-14) % Eos % (Auto) 4.8 H (2-4) % Baso % (Auto) 1.3 (0-2) % Neut # (Auto) 3200 (0391-3921) /uL Lymph # (Auto) 2100 (1865-1648) /uL [place] # (Auto) 500 (0-900) /uL Eos # (Auto) 300 (0-450) /uL Baso # (Auto) 100 (0-100) /uL Sodium 139 (137-145) mmol/L Potassium 4.0 (3.4-5.1) mmol/L Chloride 103 (98-107) mmol/L Carbon Dioxide 30 (22-32) mmol/L BUN 12 (7-17) mg/dL Creatinine 0.82 (0.52-1.04) mg/dL Estimated GFR > 60 (>60) mL/min BUN/Creatinine Ratio 14.6 (6-22) Glucose 77 (70-100) mg/dL Calcium 9.3 (8.4-10.2) mg/dL Total Bilirubin 0.4 (0.2-1.3) mg/dL AST 25 (14-36) IU/L ALT 20 (<35) IU/L Alkaline Phosphatase 70 (38-126) U/L Total Protein 7.5 (6.3-8.2) g/dL Albumin 4.4 (3.5-5.0) g/dL Globulin 3.1 (1.7-4.1) g/dL Albumin/Globulin Ratio 1.4 (1.0-2.8) Urine RBC None seen (0-5/HPF) Urine WBC 1-5/hpf (0-5/HPF) Ur Squamous Epith Cells 5-10 /hpf H (0-5/HPF) Urine Bacteria None seen (None) Ur Culture Indicated? Specimen cultured Vol Urine Centrifuged 10ml (spun) Ur Chlamydia DNA (PCR) Not detected HIV 1&2 Ab/P24 Ag 4thGn Negative (NEGATIVE) N gonorrhoeae DNA (PCR) Not detected Point of care testing: Point of Care Testing Test Results Negative Urine Dip Bedside Urine Glucose Negative Bedside Urine Bilirubin - Negative Bedside Urine Ketone - Negative Urine Specific [place] 1.02 Bedside Urine Occult Blood + Bedside Urine pH 6.0 Bedside Urine Protein - Negative Bedside Urine Urobilinogen - Negative Bedside Urine Nitrite - Negative Bedside Urine Leukocytes + 70 Esterase MDM Narrative Medical decision making narrative: 33-year-old female with past medical history polysubstance use, smoker presents to the ED with 1 month of intermittent vaginal spotting, increased vaginal discharge which patient describes as with a fishy odor. Abdominal exam is benign. Concern for STI versus bacterial vaginosis versus UTI versus other. Labs, urine, wet prep, STI panel ordered. Labs within normal limits. UA without UTI. Wet prep positive for clue cells. HIV is negative. Gonorrhea and chlamydia negative. Syphilis is pending. Discussed findings with patient. Prescribed antibiotics for BV. Will call patient if syphilis is positive. Recommend that patient follow-up with gynecology regarding her irregular menstrual cycles. ED return precautions discussed with patient. Patient verbalized understanding. Medical records reviewed: Yes <Anastasia Vieyra, - Last Filed: 01/09/24 18:38> Lab Data Labs: Lab Results 01/09/24 01/09/24 Range/Units 13:44 14:00 WBC 6.1 (4.5-11.0) X10^3/uL RBC 3.95 L (4.0-5.2) X10^6/uL Hgb 11.5 L (12.0-16.0) g/dL Hct 34.3 L (36-46) % MCV 86.7 (80-100) fL MCH 29.0 (26-34) PG MCHC 33.4 (30-36) % RDW 13.6 (11.6-14.8) % Plt Count 256 (150-400) X10^3/uL Neut % (Auto) 52.2 (50-75) % Lymph % (Auto) 34.1 (25-40) % [place] % (Auto) 7.6 (3-14) % Eos % (Auto) 4.8 H (2-4) % Baso % (Auto) 1.3 (0-2) % Neut # (Auto) 3200 (3446-7880) /uL Lymph # (Auto) 2100 (9561-7621) /uL [place] # (Auto) 500 (0-900) /uL Eos # (Auto) 300 (0-450) /uL Baso # (Auto) 100 (0-100) /uL Sodium 139 (137-145) mmol/L Potassium 4.0 (3.4-5.1) mmol/L Chloride 103 (98-107) mmol/L Carbon Dioxide 30 (22-32) mmol/L BUN 12 (7-17) mg/dL Creatinine 0.82 (0.52-1.04) mg/dL Estimated GFR > 60 (>60) mL/min BUN/Creatinine Ratio 14.6 (6-22) Glucose 77 (70-100) mg/dL Calcium 9.3 (8.4-10.2) mg/dL Total Bilirubin 0.4 (0.2-1.3) mg/dL AST 25 (14-36) IU/L ALT 20 (<35) IU/L Alkaline Phosphatase 70 (38-126) U/L Total Protein 7.5 (6.3-8.2) g/dL Albumin 4.4 (3.5-5.0) g/dL Globulin 3.1 (1.7-4.1) g/dL Albumin/Globulin Ratio 1.4 (1.0-2.8) Urine RBC None seen (0-5/HPF) Urine WBC 1-5/hpf (0-5/HPF) Ur Squamous Epith Cells 5-10 /hpf H (0-5/HPF) Urine Bacteria None seen (None) Ur Culture Indicated? Specimen cultured Vol Urine Centrifuged 10ml (spun) Ur Chlamydia DNA (PCR) Not detected HIV 1&2 Ab/P24 Ag 4thGn Negative (NEGATIVE) N gonorrhoeae DNA (PCR) Not detected Point of care testing: Point of Care Testing Test Results Negative Urine Dip Bedside Urine Glucose Negative Bedside Urine Bilirubin - Negative Bedside Urine Ketone - Negative Urine Specific [place] 1.02 Bedside Urine Occult Blood + Bedside Urine pH 6.0 Bedside Urine Protein - Negative Bedside Urine Urobilinogen - Negative Bedside Urine Nitrite - Negative Bedside Urine Leukocytes + 70 Esterase Discharge Plan Departure Patient Disposition: Home Clinical Impression: Bacterial vaginosis Instructions: DI for Bacterial Vaginosis Activity Restrictions/Additional Instructions: You were seen in the ED today for some STI testing, vaginal discharge. The HIV, chlamydia, gonorrhea tests were negative. The syphilis test will take a few days to come back and we will call you if it is positive. You did test positive for bacterial vaginosis for which you are being prescribed some antibiotics. Please take those as prescribed. Please follow-up with a last dipper as soon as possible for further evaluation of your irregular menstrual cycles. You may call [facility] at [phone] to make an appointment. Return to the ED if you have worsening symptoms. Prescriptions: New metronidazole 500 mg tablet 500 mg PO Q12H 7 Days Qty: 14 0RF No Action citalopram 10 mg Tablet 10 mg PO QAM olanzapine 5 mg Tablet 5 mg PO BEDTIME levothyroxine 100 mcg Tablet 100 mcg PO QAM methadone [Methadone Intensol] 10 mg/mL Concentrate 148 mg PO DAILY Stand Alone Forms: Patient Portal/API/Survey ED Sign-out <Anastasia Vieyra DO - Last Filed: 01/09/24 18:38> Cosign ED Attending Cosignature Attestation: I was immediately available in the department for consultation.
[2024-01-09 16:16] VITALS: BP 124/73; PULSE 57; RESP 19; TEMP 36.6; O2SAT 96
[2024-01-11 05:15] LABS: RPR Screen Non Reactive (Non Reactive)
== END 2024-01-09 16:18 | disposition home or self-care (01) ==
PROVIDERS: Emergency Medicine; Emergency Provider Student in an Organized Health Care Education/Training Program
DX: N76.0 Acute vaginitis (principal)
CPT/HCPCS: 36415; 80053; 81003; 81015; 81025; 85025; 86592; 87086; 87210; 87389; 87491; 87591; 99282; 99283

== ENCOUNTER 2024-02-26 16:41 | Emergency (ER) | payer OTHER, SELFPAY ==
--- NOTE | 2024-02-26 16:44 | EKG_ITS ---
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
[2024-02-26 16:45] VITALS: BP 140/93; PULSE 65; RESP 18; TEMP 36.8; O2SAT 99
--- NOTE | 2024-02-26 16:51 | EKG_ITS ---
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
--- NOTE | 2024-02-26 17:07 | DI.RAD.S_ITS ---
PROCEDURE: XR CHEST 1V INDICATIONS: chest pain TECHNIQUE: One view of the chest was acquired. COMPARISON: [facility], CR, XR CHEST 2V, 03/03/2020, 13:43. FINDINGS: Surgical changes and devices: None. Lungs and pleura: Lungs are clear. No pleural effusions or pneumothorax. Mediastinum: Mediastinal contours appear normal. Heart size is normal. Bones and chest wall: No suspicious bony lesions. Overlying soft tissues appear unremarkable. IMPRESSION: No acute cardiopulmonary pathology. Dictated by: Sherman Nagy M.D. on 02/26/2024 at 17:41 Approved by: Sherman Nagy M.D. on 02/26/2024 at 17:41
[2024-02-26 17:37] LABS: Add Manual Diff / Slide Review NO; Basophils Absolute Auto 100 /uL (0-100); Basophils Percent Auto 0.7 % (0-2); Eosinophils Absolute Auto 100 /uL (0-450); Eosinophils Percent Auto 1.5 % (2-4); Hematocrit 39.2 % (36-46); Lymphocytes Absolute Auto 1900 /uL (1100-4500); Mean Corpuscular HGB Conc 33.2 % (30-36); Mean Corpuscular Hemoglobin 29.2 PG (26-34); Mean Corpuscular Volume 87.9 fL (80-100); Monocytes Absolute Auto 700 /uL (0-900); Neutrophils Absolute Auto 5600 /uL (1500-7000); Neutrophils Percent Auto 66.8 % (50-75); Platelet Count 291 X10^3/uL (150-400); Red Blood Cell Count 4.46 X10^6/uL (4.0-5.2); Red Cell Distribution Width 13.8 % (11.6-14.8); White Blood Cell Count 8.4 X10^3/uL (4.5-11.0)
[2024-02-26 17:42] LABS: Prothrombin Time 11.7 SECONDS (9.4-12.5)
[2024-02-26 17:44] LABS: PTT Partial Thromboplastin Tim 50 SECONDS (25.1-36.5)
[2024-02-26 17:46] LABS: Alanine Aminotransferase 29 IU/L (<35); Albumin 4.7 g/dL (3.5-5.0); Albumin Globulin Ratio 1.4 (1.0-2.8); Alkaline Phosphatase 63 U/L (38-126); Aspartate Aminotransferase 35 IU/L (14-36); Bilirubin Total 0.3 mg/dL (0.2-1.3); Blood Urea Nitrogen 12 mg/dL (7-17); Calcium 9.6 mg/dL (8.4-10.2); Carbon Dioxide 27 mmol/L (22-32); Chloride 105 mmol/L (98-107); Creatine Kinase 157 U/L (30-135); Estimated Glomerular Filt Rate > 60 mL/min (>60); Globulin 3.4 g/dL (1.7-4.1); Glucose 97 mg/dL (70-100); HEMOLYSIS < 15 (0-50); Lipase 36 U/L (23-300); Magnesium 2.1 mg/dL (1.6-2.3); Potassium 3.9 mmol/L (3.4-5.1); Sodium 140 mmol/L (137-145); Total Protein 8.1 g/dL (6.3-8.2)
[2024-02-26 17:58] LABS: NT-proBNP (BNP-Adult 18+) 23 pg/mL (<125); Troponin I < 0.012 ng/mL (0.01-0.034)
[2024-02-26 18:25] LABS: Thyroid Stimulating Hormone 63.4 uIU/mL (0.47-4.68)
== END 2024-02-26 17:40 | disposition left against medical advice (07) ==
PROVIDERS: Emergency Provider Emergency Medicine
DX: R07.9 Chest pain, unspecified (principal); R42 Dizziness and giddiness; R55 Syncope and collapse
CPT/HCPCS: 71045; 80053; 82550; 83690; 83735; 83880; 84443; 84484; 85025; 85610; 85730; 93005; 99281

== ENCOUNTER 2024-05-13 12:58 | Emergency (ER) | payer OTHER, SELFPAY ==
[2024-05-13 13:02] VITALS: BP 127/91; PULSE 89; RESP 18; TEMP 36.9; O2SAT 98
--- NOTE | 2024-05-13 13:58 | ED.SKABFB ---
HPI - Skin/Abscess/Foreign Bdy <Raven Duran PA-C - Last Filed: 05/13/24 14:39> General Chief complaint: Skin/Abscess/Foreign Body Stated complaint: Chemical burn from bleaching her hair Time Seen by Provider: 05/13/24 13:23 Source: patient Mode of arrival: Ambulatory Limitations: no limitations History of Present Illness HPI narrative: 33-year-old female with past medical history polysubstance use, smoker presents to the ED with 2 days of rash. Patient states that she had applied a hair product to bleed her hair, following which the water at her home was shut off. Patient went outside and dunked her head in some barrel with open rain water. About 20 minutes thereafter, patient felt some burning in her nose and noted some lesions on her face. No shortness of breath, chest pain, vomiting, fever. Related Data Home Medications Medication Instructions Recorded Confirmed citalopram 10 mg tablet 10 mg PO QAM 01/06/20 01/06/20 levothyroxine 100 mcg tablet 100 mcg PO QAM 01/06/20 01/06/20 methadone 10 mg/mL oral 148 mg PO DAILY 01/06/20 01/06/20 concentrate (Methadone Intensol) olanzapine 5 mg tablet 5 mg PO BEDTIME 01/06/20 01/06/20 Previous Rx's Medication Instructions Recorded mupirocin 2 % topical ointment 1 applic topical TID 5 days #15 05/13/24 grams triamcinolone acetonide 0.025 % 1 applic topical BID 7 days #15 05/13/24 topical ointment grams Allergies Allergy/AdvReac Type Severity Reaction Status Date / Time sulfamethoxazole AdvReac Intermediate RASH Verified 01/09/24 13:17 [From BACTRIM] trimethoprim [From BACTRIM] AdvReac Intermediate RASH Verified 01/09/24 13:17 hydrocodone [From VICODIN] AdvReac Mild RASH Verified 01/09/24 13:17 morphine [MORPHINE] AdvReac Mild ANXIETY, Verified 01/09/24 13:17 PRURITIS Review of Systems <Raven Duran PA-C - Last Filed: 05/13/24 14:39> Constitutional Constitutional: Denies chills, Denies fatigue, Denies fever(s), Denies frequent falls, Denies lethargy and Denies weakness Eyes Eyes: Denies change in vision, Denies eye discharge, Denies irritation and Denies loss of vision ENT Ears, Nose, Mouth, and Throat: Denies change in voice, Denies dizziness, Denies neck pain, Denies sore throat and Denies throat swelling Cardiovascular Cardiovascular: Denies chest pain, Denies irregular heart rhythm, Denies lightheadedness, Denies palpitations, Denies dyspnea, Denies dyspnea on exertion and Denies orthopnea Respiratory Respiratory: Denies cough, Denies dyspnea, Denies dyspnea on exertion and Denies wheezing Gastrointestinal Gastrointestinal: Denies abdominal pain, Denies change in bowel habits, Denies diarrhea, Denies nausea and Denies vomiting Musculoskeletal Musculoskeletal: Denies neck pain and Denies numbness Integumentary/Breasts Skin/Breast: Denies pruritus, Denies erythema, Reports rash and Denies wounds Neurologic Neurologic: Denies behavioral changes, Denies confusion, Denies dizziness, Denies frequent falls, Denies loss of vision, Denies numbness and Denies weakness Psychiatric Psychiatric: Denies anxiety, Denies behavioral changes, Denies confusion, Denies depression, Denies homicidal ideation and Denies suicidal ideation Endocrine Endocrine: Denies fatigue, Denies flushing and Denies palpitations Hematologic/Lymphatic Hematologic/Lymphatic: Denies easy bruising Allergic/Immunologic Allergic/Immunologic: Denies urticaria, Denies throat swelling and Denies wheezing Patient History <Raven Duran PA-C - Last Filed: 05/13/24 14:39> Medical History Polysubstance abuse (05/20/15) Social History Smoking Status: Current every day smoker Smoking Status: Current every day smoker alcohol intake frequency: holidays/special occasions only Exam <Raven Duran PA-C - Last Filed: 05/13/24 14:39> Narrative Exam Narrative: Const General:?cooperative, healthy appearing and comfortable [facility] Head:?normal to inspection Ears:?hearing grossly normal bilaterally Nose:?external nose normal Face and sinus:?normal facial exam and sinuses nontender Mouth:?oral mucosae normal Throat:?posterior oropharynx normal Eyes General:?appearance normal, both eyes and all related structures Neck Neck:?normal visual inspection and no lymphadenopathy noted Resp Effort & Inspection:?normal respiratory effort Auscultation:?clear to auscultation bilaterally Cardio Rate:?regular rate Rhythm:?regular rhythm Integumentary There are multiple discrete lesions on the face, 1 under the nose. They have honey-colored crusting, most consistent with impetigo. Neuro General:?patient alert, patient awake and patient oriented x3 Initial Vital Signs Initial Vital Signs: Vital Signs Temperature 98.4 F 05/13/24 13:02 Pulse Rate 89 05/13/24 13:02 Respiratory Rate 18 05/13/24 13:02 Blood Pressure 127/91 H 05/13/24 13:02 Pulse Oximetry 98 05/13/24 13:02 Oxygen Delivery Method Room Air 05/13/24 13:02 <Yamileth Lozano DO - Last Filed: 05/17/24 07:13> Initial Vital Signs Initial Vital Signs: Vital Signs Temperature 98.4 F 05/13/24 13:02 Pulse Rate 89 05/13/24 13:02 Respiratory Rate 18 05/13/24 13:02 Blood Pressure 127/91 H 05/13/24 13:02 Pulse Oximetry 98 05/13/24 13:02 Oxygen Delivery Method Room Air 05/13/24 13:02 Course <Raven Duran PA-C - Last Filed: 05/13/24 14:39> Vital Signs Vital signs: Vital Signs - 8 hr 05/13/24 13:02 05/13/24 14:15 Temperature 98.4 F Pulse Rate 89 89 Respiratory Rate 18 22 Blood Pressure 127/91 H 119/73 Pulse Oximetry 98 98 Oxygen Delivery Method Room Air Room Air <DO Ari Bang Last Filed: 05/17/24 07:13> Vital Signs Vital signs: Vital Signs - 8 hr 05/13/24 13:02 05/13/24 14:15 Temperature 98.4 F Pulse Rate 89 89 Respiratory Rate 18 22 Blood Pressure 127/91 H 119/73 Pulse Oximetry 98 98 Oxygen Delivery Method Room Air Room Air MDM - Skin/Abscess/Foreign Bdy <JUAQUIN Stephens Last Filed: 05/13/24 14:39> MDM Narrative Medical decision making narrative: 33-year-old female with past medical history polysubstance use, smoker presents to the ED with 2 days of rash. On exam, there are multiple discrete lesions on the face, 1 under the nose. They have honey-colored crusting, most consistent with impetigo. The lesions appear to be older than 2 days. No intranasal lesions or abnormalities noted. Will prescribe corticosteroid cream, mupirocin. Recommend patient follow-up with the PCP as soon as possible. ED return precautions discussed with patient. Patient verbalized understanding. Medical records reviewed: Yes Discharge Plan Departure Patient Disposition: Home Clinical Impression: Rash Instructions: DI for Rash Activity Restrictions/Additional Instructions: You were evaluated in the ED today for a rash. You have been prescribed an antibiotic and corticosteroid ointment. Please use those as prescribed. Please follow-up with your PCP as soon as possible. Return to the ED if you have worsening symptoms. Prescriptions: New mupirocin 2 % ointment 1 applic topical TID 5 Days Qty: 15 0RF triamcinolone acetonide 0.025 % ointment 1 applic topical BID 7 Days Qty: 15 0RF No Action citalopram 10 mg Tablet 10 mg PO QAM olanzapine 5 mg Tablet 5 mg PO BEDTIME levothyroxine 100 mcg Tablet 100 mcg PO QAM methadone [Methadone Intensol] 10 mg/mL Concentrate 148 mg PO DAILY Stand Alone Forms: Patient Portal/API/Survey ED Sign-out <Yamileth Lozano DO - Last Filed: 05/17/24 07:13> Cosign ED Attending Cosmatthewature Attestation: I was available for consultation.
[2024-05-13 14:15] VITALS: BP 119/73; PULSE 89; RESP 22; O2SAT 98
--- NOTE | 2024-05-13 14:21 | PC.NURSE ---
Pt's main complait of something is in my nose! There are bumps, and something crawled in. I had a zit and I dunked my head in a barrel of rain water after bleaching my hair. I felt something crawl into my zit. The water has been stagnant for who knows how long! Small scab/rash present at base of nostril.
== END 2024-05-13 14:31 | disposition home or self-care (01) ==
PROVIDERS: Emergency Provider Student in an Organized Health Care Education/Training Program
DX: R21 Rash and other nonspecific skin eruption (principal)
CPT/HCPCS: 99281

== ENCOUNTER 2024-06-04 11:57 | Emergency (ER) | payer OTHER, SELFPAY ==
[2024-06-04 12:05] VITALS: BP 121/78; PULSE 110; RESP 20; TEMP 36.9; O2SAT 99; BMI 19.1
--- NOTE | 2024-06-04 15:45 | ED_ITS ---
HPI - General Adult General Chief complaint: Weakness Stated complaint: weakness, not feeling okay, infected nose Time Seen by Provider: 06/04/24 12:41 Source: patient Mode of arrival: Ambulatory History of Present Illness HPI narrative: 33-year-old female with polysubstance abuse, currently on methadone presents to the ED for a lesion under her right nostril. Patient was seen in the ED on 05/13/2024, diagnosed with impetigo and prescribed mupirocin ointment. Patient states that she has been applying it with no relief. Patient states that the lesion is causing her extreme distress, causing her to think that she might have contracted a parasitic infection from getting her face into some dirty water. Patient endorses mental health issues, is on olanzapine. patient does have a psychologist that she sees regularly. Patient denies that she is currently using any recreational drugs. Denies suicidal ideation, denies homicidal ideation. no fever, chills, chest pain, shortness of breath, rhinorrhea, cough, nausea, vomiting, abdominal pain, lightheadedness, diarrhea, dizziness, syncope. Patient does endorse some constipation which is baseline for her. Related Data Home Medications Medication Instructions Recorded Confirmed citalopram 10 mg tablet 10 mg PO QAM 01/06/20 01/06/20 levothyroxine 100 mcg tablet 100 mcg PO QAM 01/06/20 01/06/20 methadone 10 mg/mL oral 148 mg PO DAILY 01/06/20 01/06/20 concentrate (Methadone Intensol) olanzapine 5 mg tablet 5 mg PO BEDTIME 01/06/20 01/06/20 Previous Rx's Medication Instructions Recorded cephalexin 500 mg capsule 500 mg PO QID 10 days #40 caps 06/04/24 Allergies Allergy/AdvReac Type Severity Reaction Status Date / Time sulfamethoxazole AdvReac Intermediate RASH Verified 01/09/24 13:17 [From BACTRIM] trimethoprim [From BACTRIM] AdvReac Intermediate RASH Verified 01/09/24 13:17 hydrocodone [From VICODIN] AdvReac Mild RASH Verified 01/09/24 13:17 morphine [MORPHINE] AdvReac Mild ANXIETY, Verified 01/09/24 13:17 PRURITIS Review of Systems Constitutional Constitutional: Denies chills, Denies fatigue, Denies fever(s), Denies frequent falls, Denies lethargy and Denies weakness Eyes Eyes: Denies change in vision, Denies eye discharge, Denies irritation and Denies loss of vision ENT Ears, Nose, Mouth, and Throat: Denies change in voice, Denies dizziness, Denies neck pain, Denies sore throat and Denies throat swelling Cardiovascular Cardiovascular: Denies chest pain, Denies irregular heart rhythm, Denies lightheadedness, Denies palpitations, Denies dyspnea, Denies dyspnea on exertion and Denies orthopnea Respiratory Respiratory: Denies cough, Denies dyspnea, Denies dyspnea on exertion and Denies wheezing Gastrointestinal Gastrointestinal: Denies abdominal pain, Denies change in bowel habits, Denies diarrhea, Denies nausea and Denies vomiting Musculoskeletal Musculoskeletal: Denies neck pain and Denies numbness Integumentary/Breasts Skin/Breast: Denies pruritus, Denies erythema, Denies rash and Reports wounds Comments: wound/ lesion under the right nostril Neurologic Neurologic: Denies behavioral changes, Denies confusion, Denies dizziness, Denies frequent falls, Denies loss of vision, Denies numbness and Denies weakness Psychiatric Psychiatric: Denies anxiety, Denies behavioral changes, Denies confusion, Denies depression, Denies homicidal ideation and Denies suicidal ideation Endocrine Endocrine: Denies fatigue, Denies flushing and Denies palpitations Hematologic/Lymphatic Hematologic/Lymphatic: Denies easy bruising Allergic/Immunologic Allergic/Immunologic: Denies urticaria, Denies throat swelling and Denies wheezing Patient History Medical History Polysubstance abuse (05/20/15) Social History Smoking Status: Current every day smoker Smoking Status: Current every day smoker tobacco type: cigarettes alcohol intake frequency: holidays/special occasions only Exam Narrative Exam Narrative: Const General:?cooperative, healthy appearing and comfortable [facility] Head:?normal to inspection Ears:?hearing grossly normal bilaterally Nose:?external nose normal Face and sinus:?normal facial exam and sinuses nontender Mouth:?oral mucosae normal Throat:?posterior oropharynx normal Eyes General:?appearance normal, both eyes and all related structures Neck Neck:?normal visual inspection and no lymphadenopathy noted Resp Effort & Inspection:?normal respiratory effort Auscultation:?clear to auscultation bilaterally Cardio Rate:?regular rate Rhythm:?regular rhythm Integumentary there is a small lesion below the right nostril, with honey-colored crusting. Consistent with impetigo. Neuro General:?patient alert, patient awake and patient oriented x3 Initial Vital Signs Initial Vital Signs: Vital Signs Temperature 98.5 F 06/04/24 12:05 Pulse Rate 110 H 06/04/24 12:05 Respiratory Rate 20 06/04/24 12:05 Blood Pressure 121/78 06/04/24 12:05 Pulse Oximetry 99 06/04/24 12:05 Oxygen Delivery Method Room Air 06/04/24 12:05 Course Vital Signs Vital signs: Vital Signs - 8 hr 06/04/24 12:05 Temperature 98.5 F Pulse Rate 110 H Respiratory Rate 20 Blood Pressure 121/78 Pulse Oximetry 99 Oxygen Delivery Method Room Air Medical Decision Making MDM Narrative Medical decision making narrative: 33-year-old female with polysubstance abuse, currently on methadone presents to the ED for a lesion under her right nostril. It appears that patient is suffering some mental health symptoms in the form of extreme distress due to the wound below her nostril. Counseled patient that she does not have a parasitic infection. Prescribed oral antibiotics as the next step. Recommend patient follow-up with her psychologist as soon as possible to address the mental health issues. Patient is safe for discharge, given she has no SI or HI. ED return precautions were discussed with patient. Patient verbalized understanding. Medical records reviewed: Yes Discharge Plan Departure Patient Disposition: Home Clinical Impression: Impetigo Instructions: DI for Impetigo Activity Restrictions/Additional Instructions: You were evaluated in the ED today for a lesion on the your nose. You are b eing prescribed oral antibiotics take for the next 10 days. Please take those as prescribed. It appears that this lesion is causing you distress, and treating it will make you feel better. It is important that you follow-up with your psychologist / psychiatrist as soon as possible since you are having some mental health symptoms. There are no signs of a parasitic infection on exam. Please follow-up with your PCP as soon as possible as well. Return to the ED if you have worsening symptoms. Prescriptions: New cephalexin 500 mg capsule 500 mg PO QID 10 Days Qty: 40 0RF No Action citalopram 10 mg Tablet 10 mg PO QAM olanzapine 5 mg Tablet 5 mg PO BEDTIME levothyroxine 100 mcg Tablet 100 mcg PO QAM methadone [Methadone Intensol] 10 mg/mL Concentrate 148 mg PO DAILY Referrals: Miscellaneous,Doctor, MD [Primary Care Provider] - Stand Alone Forms: Patient Portal/API/Survey
== END 2024-06-04 13:14 | disposition home or self-care (01) ==
PROVIDERS: Emergency Provider Student in an Organized Health Care Education/Training Program
DX: L01.00 Impetigo, unspecified (principal); R53.1 Weakness
CPT/HCPCS: 99281